=== PATIENT | male | born 1990 | race Caucasian/White ===

== ENCOUNTER 2023-09-12 15:39 | Outpatient (REF) | payer MEDICAID, SELFPAY | END 2023-09-12 15:40 | disposition home or self-care (01) | LOC: LBN 15:39 | PROVIDERS: Visit Provider Physician Assistant Medical | DX: L03.116 Cellulitis of left lower limb (principal) | CPT/HCPCS: 87077; 87070; 87186; 87205 ==

== ENCOUNTER 2023-10-10 18:51 | Observation (INO) | payer MEDICAID, SELFPAY ==
[2023-10-10 19:05] VITALS: BP 154/78; PULSE 102; RESP 16; TEMP 37.5; O2SAT 98
[2023-10-10 20:02] VITALS: RESP 18
--- NOTE | 2023-10-10 20:15 | DI.US_ITS ---
Exam(s) US SCROTUM EXAM: US SCROTUM CLINICAL HISTORY: testicular swelling and pain. TECHNIQUE: Scrotal ultrasound performed using grayscale, color-flow and spectral Doppler analysis. COMPARISON: No exams were available for comparison FINDINGS: Right testicle: 5.2 x 2.4 x 3.1 cm Echogenicity: Normal. Contour: Smooth. Mass: None seen. Microlithiasis: None. Hydrocele: None. Variocele: None. Hernia: No peristalsing bowel loop identified. Epididymis: Was not visualized well sonographically. Heterogeneous tissue is seen in the region of t he right epididymis. Left testicle: 4 x 2.7 x 3.9 cm Echogenicity: Normal. Contour: Smooth. Mass: None seen. Microlithiasis: None. Hydrocele: None. Variocele: None. Hernia: No peristalsing bowel loop identified. Epididymis: Normal. DOPPLER: Color: Symmetric and uniform, no hyperemia. There is subcutaneous swelling between the testicles in the scrotal soft tissues. It is slightly mor e hypoechoic than the surrounding soft tissues. There is slight increased blood flow in this region. IMPRESSION: 1. Normal appearing bilateral testicles. 2. Subcutaneous swelling in the scrotal soft tissues anterior and between the testicles. There is hy pervascularity and slight decreased echogenicity. Inflammatory/infectious process such as cellulitis or mass should be considered. 3. Heterogeneous soft tissue in the region of the right epididymis. Differential considerations incl ude right epididymitis, possible inguinal hernia. DATA REPOSITORY:
--- NOTE | 2023-10-10 20:15 | DI.CT_ITS ---
Exam(s) CT ABDOMEN PELVIS W EXAM: CT ABDOMEN PELVIS W CLINICAL HISTORY: scrotal pain swelling, concern hernia incarcer. TECHNIQUE: Imaging Protocol: Axial computed tomography images with coronal and sagittal reformatted images were created and reviewed. CONTRAST MATERIAL: Intravenous: Omnipaque 350 Contrast volume:100 mL Oral: No COMPARISON: US US SCROTUM from 10/10/2023 FINDINGS: ABDOMEN: Lung Bases: Atelectatic changes are seen in the lung bases. Liver: There is decreased attenuation of the liver. The liver is enlarged measuring 24 cm. No measu rable mass. Portal, Superior Mesenteric, and Splenic Veins: Unremarkable. Gallbladder and Biliary Tract: Status post cholecystectomy. No significant biliary ductal dilatation . Pancreas: Normal density, no abnormal calcifications or inflammatory process. Spleen: The spleen measures 14 cm long. Adrenals: No masses seen. Kidneys: Normal size, contour and axis. No radiodense stones or obstructive uropathy. Simple right re nal cyst. No follow-up is recommended. Abdominal Aorta: Abdominal portion non-dilated. IVC: There is an IVC filter in place. Bowel: No obstruction or bowel wall thickening. No evidence of appendicitis. Peritoneal Cavity: No ascites, collection or mesenteric inflammatory response. No free air. Lymph Nodes: There are enlarged right inguinal lymph nodes. The largest measures 1.4 x 3.7 cm (serie s 5, image 916). There also enlarged lymph nodes seen in the periaortic region in the willian hepatis. The largest lymph node measures 2.5 x 2 cm. (Series 5, image 274). Bones: Within normal limits for the patient's age. 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 Soft Tissues: There are enlarged vessel seen in the inguinal regions bilaterally, right greater than left. These may be varices. PELVIS: Bladder: Symmetric distention, no gross wall thickening. Reproductive Organs: Unremarkable as visualized. There is edema seen in the soft tissues of the scrot um. No focal fluid collection or gas is seen. There is a subtle area of slightly increased attenuati on anteriorly between the testicles (series 10 this may correspond to the finding seen on the ultraso und from earlier in the day. Images [id number]). Lymph Nodes: Within normal limits. Bones: Within normal limits for the patient's age. IMPRESSION: 1. Subtle area of slight increased attenuation anteriorly in the scrotum between the testicles in the subcutaneous location. A mass cannot be excluded. This does correspond to the area seen on the ultra sound from earlier in the day. 2. Enlarged lymph nodes seen in the retroperitoneum, willian hepatis and right inguinal region. Neoplas m or metastatic disease should be considered. Pet scan may be considered for further evaluation. 3. Hepatosplenomegaly and hepatic steatosis. 4. Bilateral inguinal varices, right greater than left. RADIATION DOSE DELIVERED: Total DLP DATA REPOSITORY: All CT scans at this facility are submitted to the National Radiology Data Registry (NRDR) Dose Index Registry (DIR) with the [employer] ([employer]). RADIATION OPTIMIZATION: All CT scans at this facility use at least one of these dose optimization te chniques: automated exposure control; mA and/or kV adjustment per patient size (includes targeted exa ms where dose is matched to clinical indication); or iterative reconstruction.
--- NOTE | 2023-10-10 20:19 | ED.GENADUL_ITS ---
Discharge Plan Disposition Patient Disposition: Admit to [facility] Condition: Stable Discharge Details Chief Complaint: GenMedical Clinical Impression: Scrotal infection Primary Care Provider: None,None ED Provider: Jason Lopez Home Meds and New Rx's Prescriptions: No Action pantoprazole 40 mg tablet,delayed release (DR/EC) 40 mg PO DAILY venlafaxine [Effexor XR] 150 mg capsule,extended release 24hr 150 mg PO DAILY lisinopril 10 mg tablet 10 mg PO DAILY quetiapine [Seroquel XR] 150 mg PO HS buprenorphine-naloxone [Suboxone] 8 mg sublingual BID enoxaparin [Lovenox] 150 mg/mL syringe 150 mg subcut Q12H HPI General Date/Time Provider Initiated Documentation: 10/10/23 19:10 . HPI Narrative: 32 year-old male presents to ED today by POV/ambulating with a chief complaint of testicular pain, swelling, redness with onset 2 days ago that started with a tiny lump, has grown significantly, excruciating pain. Quality described as severe pain, no radiation to dysuria, penile discharge, does endorse R inguinal tenderness as well, states relief with elevation, has a small skin lesion resemb ling a pimple on R scrotal sac, history of MRSA recently. Severity is described as 10. Palliating factors include elevation, nothing else helping. Provoking factors include nothing specific. Patient is anticoagulated on Lovenox BID, [ ]. Related Data Home Medications Medication Instructions Recorded Confirmed buprenorphine-naloxone 8 mg sublingual BID 10/10/23 10/10/23 enoxaparin 150 mg/mL subcutaneous 150 mg subcut Q12H 10/10/23 10/10/23 syringe (Lovenox) lisinopril 10 mg tablet 10 mg PO DAILY 10/10/23 10/10/23 pantoprazole 40 mg tablet,delayed 40 mg PO DAILY 10/10/23 10/10/23 release quetiapine 150 mg PO HS 10/10/23 10/10/23 venlafaxine 150 mg 150 mg PO DAILY 10/10/23 10/10/23 capsule,extended release 24 hr (Effexor XR) Allergies Allergy/AdvReac Type Severity Reaction Status Date / Time ceftriaxone Allergy Other (See Verified 10/10/23 22:14 Comment) diphenhydramine Allergy Other (See Verified 10/10/23 19:52 [From Benadryl] Comment) keflex Allergy Other (See Uncoded 10/10/23 19:53 Comment) rocephin Allergy Other (See Uncoded 10/10/23 19:52 Comment) General Stated Complaint: GenMedical MAR: 3 Review of Systems All systems reviewed & are unremarkable except as noted in HPI and below Exam Narrative Exam Narrative: GENERAL APPEARANCE: Well-nourished, non-toxic, awake and alert, atraumatic, no acute distress. SKIN: Warm, pink, dry, intact, without rashes/lesions/ulcerations. HEAD: Normocephalic, atraumatic, normal hair distribution for gender/age. EYES: Pupils PERRLA, EOMs intact without nystagmus, normal conjunctiva, no exudates on lids/lashes. ENT: Nares patent, no circumoral cyanosis, no facial swelling NECK: Supple, trachea midline, painless cervical ROM. LUNGS/CHEST: Lungs CTA bilaterally, non-labored respirations, normal A/P diameter, symmetrical expansion, no chest wall deformity HEART (CV/PV): Regular rate and rhythm without murmur, no peripheral edema, no JVD. ABDOMEN: Soft, non-distended, no guarding. : Significant scrotal swelling taking up the entire superior scrotum with a small pimple-like lesion on the right scrotal sac, there is redness and warmth, no penile discharge, no cutaneous emphysema, right inguinal tenderness without large inguinal bulge, no peritoneal signs to the rest of the abdomen MSK: Normal ROM, no swelling/deformity to bilateral UEs or LEs, moving all extremities without weakness, no cyanosis, spine midline without tenderness, normal curvature. NEURO: Mental Status AAOx4 - alert to person, place, time, events No facial droop, no forehead involvement. Motor: No focal weakness - strength 5/5 in bilateral UEs and LEs, proximal and distal, symmetric. Sensory: sensation intact to light touch globally. Gait normal: patient ambulated without ataxia into ED room. PSYCH: euthymic, cooperative, pleasant, appropriate speech Course Vital Signs Vital signs: Vital Signs Temperature 37.5 C 10/10/23 19:05 Pulse 102 H 10/10/23 19:05 Respiratory Rate 16 10/10/23 19:05 Blood Pressure 154/78 H 10/10/23 19:05 Pulse Oximetry 98 10/10/23 19:05 Temperature 37.5 C 10/10/23 19:05 Temperature Source Temporal Artery Scan 10/10/23 19:05 Pulse 102 H 10/10/23 19:05 Respiratory Rate 18 10/10/23 20:02 Respiratory Effort Normal 10/10/23 20:02 Respiratory Depth Normal 10/10/23 20:02 Respiratory Pattern Normal 10/10/23 20:02 Blood Pressure 154/78 H 10/10/23 19:05 Blood Pressure Position Sitting 10/10/23 19:05 Pulse Oximetry 98 10/10/23 19:05 Oxygen Delivery Method Room Air 10/10/23 19:05 Oxygen Flow Rate 0 10/10/23 19:05 Pain Level 9 10/10/23 19:05 Medical Decision Making This dictation utilizes [id number] dictation software and may contain unedited grammatical errors. 32 y/o M presents to ED today with a chief complaint of scrotal swelling, started 2 days ago with a small lump, has grown exponentially in size, having redness/warmth to touch, small pimple-like lesion on R scrotum, R inguinal pain. Patient denies new sexual partners, denies penile pain or discharge. Patients' medical history: suboxone use, lovenox use BID. Family and social history: IVDU history, denies recent sexual partners. Pertinent exam findings / vital signs include significant scrotal swelling with warm to touch and redness, no subcutaneous emphysema on palpation, cremaster's intact, relief with elevation, nontoxic vitals, benign cardiopulmonary status, pain on palpation at right inguinal canal. Differential / pathologies of concern include incarcerated hernia, testicular torsion, Robert's gangrene, soft tissue infection of scrotum, STI. Diagnostic studies of: -CBC, CMP, UA (clean & dirty), NG/GC, CRP/ESR, Lactate, Procalcitonin, Lipase, Blood Cx's, U/S Scrotum, CT ABD/Pelvis w Contrast. -CBC shows leukocytosis 12.3 -Lactate WNL -CRP / ESR mild elev -UA not infected -Procalcitonin neg -Lipase WNL -Blood Cx's pending -US shows no testicular torsion, questions infection -CT shows no incarcerated hernia, no gas, likely soft tissue infection Interventions of: -Given IV ceftriaxone and doxycycline, 3 mg Dilaudid, 1 g IV Tylenol, held NSAIDs as the patient is on twice daily Lovenox for unknown reason, consult with general surgery Dr. Serna. ED Course/Assessment/Plan: 32-year-old male is seen with acute scrotal swelling with pimple-like lesion on the scrotum, has severe pain with palpation, I am concerned for Robert's gangrene as well as possible testicular torsion or incarcerated hernia, labs and imaging indicate no torsion, no incarceration, likely soft tissue infection without necrotizing subcutaneous emphysema, due to the patient's severity of swelling and pain likely needs some debridement and Dr. eSrna of general surgery was consulted, admitted to be taken to the OR this evening for debridement. Findings not consistent with Robert's gangrene, testicular torsion, incarcerated hernia. Disposition of scrotal infection. Patient verbalized understanding of the plan and return to ED criteria and engaged in shared decision making. Medical Records Medical records reviewed: Yes I reviewed the patient's medical records. Imaging Data Radiologic Study: Attestation: I personally reviewed and interpreted this imaging study as follows: Imaging: Ultrasound Radiologist's impression: Exam: US Scrotum Exam date and time: 10/10/2023 8:41 PM Age: 32 years old Clinical indication: Scrotum pain TECHNIQUE: Imaging protocol: Real-time ultrasound of the scrotum and contents with color Doppler and image documentation. COMPARISON: No relevant prior studies available. FINDINGS: Right testicle: Right testis measures 5.2 x 2.4 x 3.1 cm. No parenchymal abnormality. Normal arterial and venous blood flow. Left testicle: Left testis measures 4.0 x 2.7 x 3.9 cm. No parenchymal abnormality. Normal arterial and venous blood flow. Epididymides: Normal left epididymis. Right epididymis is not well seen due to overlying soft tissue swelling. Scrotum/soft tissues: Soft tissue/skin thickening of the anterior midline upper scrotum. No fluid collection, defined mass, hyperemia, or change with Valsalva. IMPRESSION: Focal superficial extratesticular soft tissue swelling without visualization of a normal right epididymis. Consider right epididymitis, incarcerated inguinal hernia, or focal skin/subcutaneous lesion. Dictated and Authenticated by: Al Johnson MD. Ordering:DEBBIE Gomez MD Radiologic Study #2: Attestation: I personally reviewed and interpreted this imaging study as follows: Imaging: CT Scan Radiologist's impression: Exam: CT Abdomen And Pelvis With Contrast Exam date and time: 10/10/2023 8:56 PM Age: 32 years old Clinical indication: Abdominal pain and other: Scrotal pain \T\ swelling; Additional info: Scrotal pain \T\ swelling, concern hernia incarcer. TECHNIQUE: Imaging protocol: Computed tomography of the abdomen and pelvis with contrast. Contrast material: OMNI 350; Contrast volume: 100 ml; Contrast route: INTRAVENOUS (IV); COMPARISON: US SCROTUM 10/10/2023 8:41 PM FINDINGS: Pleural spaces: Pleural-parenchymal scarring in the right lung base. Liver: Normal. No mass. Gallbladder and bile ducts: Prior cholecystectomy. No biliary ductal dilatation. Pancreas: Normal. No ductal dilation. Spleen: Normal. No splenomegaly. Adrenal glands: Normal. No mass. Kidneys and ureters: Benign right renal cyst. No urolithiasis or hydroureteronephrosis. Stomach and bowel: Unremarkable. No obstruction. No mucosal thickening. Appendix: No evidence of appendicitis. Intraperitoneal space: Unremarkable. No free air. No significant fluid collection. Vasculature: IVC filter in place. Bilateral lower extremity superficial varicose veins. Large varicose vein extends into the right hemiscrotum. Lymph nodes: Several prominent retroperitoneal left para-aortic lymph nodes. Prominent willian hepatis lymph node. Several enlarged left inguinal lymph nodes. Urinary bladder: Unremarkable as visualized. Reproductive: Skin thickening and/or subcutaneous fat induration of the anterior upper scrotum. No soft tissue gas to suggest Robert's gangrene. Bones/joints: Physiologic wedging of multiple lower thoracic vertebral bodies. Benign bone island in the anterior L4 vertebral body. No acute fracture. Soft tissues: No inguinal hernia. IMPRESSION: 1. Probable skin/subcutaneous mass of the anterior upper scrotum. Enlarged right inguinal and retroperitoneal lymph nodes are concerning for metastatic disease. Consider also focal superficial scrotal infection and reactive lymphadenitis. 2. Benign right renal cyst. No further imaging required. 3. Large right hemiscrotal varicose vein. Thrombosis could result in localized pain, although there is no CT evidence of thrombosis.. Dictated and Authenticated by: Al Johnson MD. Ordering:DEBBIE Gomez MD Lab Data Lab results reviewed: Yes I reviewed the patient's lab results. Labs: 10/10/23 21:56 Blood Blood Culture - Pending 10/10/23 21:46 Blood Blood Culture - Pending Laboratory Tests Range/Units 10/10/23 10/10/23 20:00 21:20 WBC (4.4-10.8) 10^3/uL 12.83 H RBC (4.36-5.78) 10^6/uL 5.54 Hgb (13.5-17.5) g/dL 15.3 Hct (40.0-50.0) % 44.3 MCV (80-95) fL 80 MCH (27.0-33.0) pg 27.6 MCHC (32.0-36.0) % 34.5 RDW (11.8-14.1) % 13.1 Plt Count (130-400) 10^3/uL 248 MPV (8.0-11.0) fL 11.2 H Immature Gran % 0.5 Neutrophils % 66.5 Lymphocytes % 18.9 Monocytes % 10.2 Eosinophils % 3.3 Basophils % 0.6 Nucleated RBC % (0.0-0.3) % 0.0 Absolute Neutrophils (1.2-6.7) 10^3/uL 8.53 H Absolute Lymphocytes (1.2-3.4) 10^3/uL 2.42 Absolute Monocytes (0.1-0.8) 10^3/uL 1.31 H Absolute Eosinophils (0.0-0.7) 10^3/uL 0.42 Absolute Basophils (0.0-0.2) 10^3/uL 0.08 ESR (0-15) mm/hr 31 H VBG Lactate (0.6-1.4) mmol/L 1.5 H Sodium (136-145) mmol/L 136 Potassium (3.5-5.1) mmol/L 4.1 Chloride (98-107) mmol/L 99 Carbon Dioxide (21.0-32.0) mmol/L 26.1 Anion Gap (3-11) mmol/L 10.9 BUN (7-18) mg/dL 15 Creatinine (0.70-1.30) mg/dL 0.9 Est GFR (CKD-EPI 2020) (mL/min/1.73m2) 114.93 Glucose (74-106) mg/dL 147 H Calcium (8.5-10.1) mg/dL 9.2 Total Bilirubin (0.2-1.0) mg/dL 0.8 AST (15-37) U/L 31 ALT (16-63) U/L 71 H Alkaline Phosphatase (46-116) U/L 68 C-Reactive Protein (<or=0.5) mg/dL 2.33 H Total Protein (6.4-8.2) g/dL 8.9 H Albumin (3.4-5.0) g/dL 3.9 Lipase (16-77) U/L 19 Procalcitonin ng/mL 0.1 Urine Color (Yellow) Yellow Urine Clarity (Clear) Clear Urine pH (5-8) 5.5 Ur Specific Kinney (1.005-1.025) 1.025 Urine Protein (Neg-Trace) mg/dL 30 H Urine Ketones (Negative) mg/dL Trace H Urine Blood (Negative) Negative Urine Nitrite (Negative) Negative Urine Bilirubin (Negative) Small H Urine Urobilinogen (Up to 0.2) mg/dL 0.2 Ur Leukocyte Esterase (Negative) Negative Urine RBC (0-2) HPF 0-2 Urine WBC (0-5) HPF 0-2 Ur Epithelial Cells (Negative) HPF Negative Urine Crystals (Negative) HPF Negative Urine Bacteria (Negative) HPF Negative Urine Casts (Negative) LPF 0-2 Hyaline Urine Mucus (Negative) Heavy Ur Culture Indicated? No Urine Glucose (Negative) mg/dL Negative Quality:SDOH Health Related Social Needs: No Data to Display PFSH All Active Problems (Updated 10/10/23 @ 23:39 by NINFA Gutierrez) Scrotal infection (Acute) Social History Smoking risk assessment performed?: No Do you feel safe at home: Yes
[2023-10-10 20:28] LABS: Lactate 1.5 mmol/L (0.6-1.4)
[2023-10-10 20:31] LABS: Abs Immature Grans 0.06 10^3/uL (0.0-0.06); Absolute Basophil Count 0.08 10^3/uL (0.0-0.2); Absolute Eosinophil Count 0.42 10^3/uL (0.0-0.7); Absolute Monocyte Count 1.31 10^3/uL (0.1-0.8); Absolute Neutrophil Count 8.53 10^3/uL (1.2-6.7); Basophils % 0.6; Eosinophils % 3.3; HCT 44.3 % (40.0-50.0); HGB 15.3 g/dL (13.5-17.5); Immature Grans % 0.5; Lymphocytes % 18.9; MCH 27.6 pg (27.0-33.0); MCHC 34.5 % (32.0-36.0); MCV 80 fL (80-95); MPV 11.2 fL (8.0-11.0); Monocytes % 10.2; Neutrophils % 66.5; Platelet Count 248 10^3/uL (130-400); RBC 5.54 10^6/uL (4.36-5.78); RDW 13.1 % (11.8-14.1); RDW-SD 37.4 fL; WBC 12.83 10^3/uL (4.4-10.8)
[2023-10-10 20:32] LABS: Absolute Lymphocyte Count 2.42 10^3/uL (1.2-3.4)
[2023-10-10 20:33] LABS: ESR 31 mm/hr (0-15)
[2023-10-10] MEDS: Ondansetron 4 MG/2 ML VIAL IVP (20:37)
[2023-10-10] MEDS: ACETAMINOPHEN 1,000 MG/100 ML BTL 400 MG IVPB (20:37)
[2023-10-10] MEDS: HYDROmorphone 2 MG/ML SYR 1 MG IVP ×2 (20:37→21:51)
[2023-10-10 20:52] LABS: ALT 71 U/L (16-63); AST 31 U/L (15-37); Albumin 3.9 g/dL (3.4-5.0); Alkaline Phosphatase 68 U/L (46-116); Anion Gap 10.9 mmol/L (3-11); BUN 15 mg/dL (7-18); Bilirubin, Total 0.8 mg/dL (0.2-1.0); C-Reactive Protein 2.33 mg/dL (<or=0.5); CO2 26.1 mmol/L (21.0-32.0); CREATININE 0.9 mg/dL (0.70-1.30); Calcium 9.2 mg/dL (8.5-10.1); Chloride 99 mmol/L (98-107); Estimated GFR 114.93 (mL/min/1.73m2); Glucose 147 mg/dL (74-106); Lipase 19 U/L (16-77); Potassium 4.1 mmol/L (3.5-5.1); Sodium 136 mmol/L (136-145); Total Protein 8.9 g/dL (6.4-8.2)
[2023-10-10] MEDS: Omnipaque 350 MG/ML 100 ML BTL IJ (20:56)
[2023-10-10] MEDS: Normal Saline - Diluent 50 ML VIAL IJ (20:57)
[2023-10-10 21:03] LABS: Procalcitonin 0.1 ng/mL
--- NOTE | 2023-10-10 21:11 | DI.VRAD_ITS ---
PROCEDURE INFORMATION: Exam: US Scrotum Exam date and time: 10/10/2023 8:41 PM Age: 32 years old Clinical indication: Scrotum pain TECHNIQUE: Imaging protocol: Real-time ultrasound of the scrotum and contents with color Doppler and image documentation. COMPARISON: No relevant prior studies available. FINDINGS: Right testicle: Right testis measures 5.2 x 2.4 x 3.1 cm. No parenchymal abnormality. Normal arterial and venous blood flow. Left testicle: Left testis measures 4.0 x 2.7 x 3.9 cm. No parenchymal abnormality. Normal arterial and venous blood flow. Epididymides: Normal left epididymis. Right epididymis is not well seen due to overlying soft tissue swelling. Scrotum/soft tissues: Soft tissue/skin thickening of the anterior midline upper scrotum. No fluid collection, defined mass, hyperemia, or change with Valsalva. IMPRESSION: Focal superficial extratesticular soft tissue swelling without visualization of a normal right epididymis. Consider right epididymitis, incarcerated inguinal hernia, or focal skin/subcutaneous lesion. Dictated and Authenticated by: Al Johnson MD. Ordering:DEBBIE Gomez MD
[2023-10-10 21:31] LABS: Bilirubin Small (Negative); Blood Negative (Negative); Clarity Clear (Clear); Glucose Negative (Negative); Ketones Trace mg/dL (Negative); Leukocyte Esterase Negative (Negative); Nitrite Negative (Negative); Specific Gravity 1.025 (1.005-1.025); Urobilinogen 0.2 mg/dL (Up to 0.2); pH 5.5 (5-8)
--- NOTE | 2023-10-10 21:35 | DI.VRAD_ITS ---
PROCEDURE INFORMATION: Exam: CT Abdomen And Pelvis With Contrast Exam date and time: 10/10/2023 8:56 PM Age: 32 years old Clinical indication: Abdominal pain and other: Scrotal pain \T\ swelling; Additional info: Scrotal pain \T\ swelling, concern hernia incarcer. TECHNIQUE: Imaging protocol: Computed tomography of the abdomen and pelvis with contrast. Contrast material: OMNI 350; Contrast volume: 100 ml; Contrast route: INTRAVENOUS (IV); COMPARISON: US SCROTUM 10/10/2023 8:41 PM FINDINGS: Pleural spaces: Pleural-parenchymal scarring in the right lung base. Liver: Normal. No mass. Gallbladder and bile ducts: Prior cholecystectomy. No biliary ductal dilatation. Pancreas: Normal. No ductal dilation. Spleen: Normal. No splenomegaly. Adrenal glands: Normal. No mass. Kidneys and ureters: Benign right renal cyst. No urolithiasis or hydroureteronephrosis. Stomach and bowel: Unremarkable. No obstruction. No mucosal thickening. Appendix: No evidence of appendicitis. Intraperitoneal space: Unremarkable. No free air. No significant fluid collection. Vasculature: IVC filter in place. Bilateral lower extremity superficial varicose veins. Large varicose vein extends into the right hemiscrotum. Lymph nodes: Several prominent retroperitoneal left para-aortic lymph nodes. Prominent willian hepatis lymph node. Several enlarged left inguinal lymph nodes. Urinary bladder: Unremarkable as visualized. Reproductive: Skin thickening and/or subcutaneous fat induration of the anterior upper scrotum. No soft tissue gas to suggest Robert's gangrene. Bones/joints: Physiologic wedging of multiple lower thoracic vertebral bodies. Benign bone island in the anterior L4 vertebral body. No acute fracture. Soft tissues: No inguinal hernia. IMPRESSION: 1. Probable skin/subcutaneous mass of the anterior upper scrotum. Enlarged right inguinal and retroperitoneal lymph nodes are concerning for metastatic disease. Consider also focal superficial scrotal infection and reactive lymphadenitis. 2. Benign right renal cyst. No further imaging required. 3. Large right hemiscrotal varicose vein. Thrombosis could result in localized pain, although there is no CT evidence of thrombosis.. Dictated and Authenticated by: Al Johnson MD. Ordering:DEBBIE Gomez MD
[2023-10-10 21:43] LABS: Bacteria Negative HPF (Negative); C & S Indicated? No; Casts 0-2 Hyaline LPF (Negative); Crystals Negative HPF (Negative); Epithelial Cells Negative HPF (Negative); RBC 0-2 HPF (0-2); WBC 0-2 HPF (0-5)
[2023-10-10 21:44] LABS: Mucus Heavy (Negative)
[2023-10-10] MEDS: DOXYCYCLINE 100 MG in Normal Saline 100 ML IVPB (22:11)
[2023-10-10 22:21] VITALS: BP 125/84; PULSE 91; RESP 18; O2SAT 98
[2023-10-10] MEDS: fentaNYL 100 MCG/2 ML VIAL 50 MCG IVP (23:16)
--- NOTE | 2023-10-10 23:31 | W.PM.HP.N ---
Date of service: 10/10/23 Time of Service: 23:31 Assessment and Plan Assessment and plan (1) Scrotal infection: Status: Acute Assessment and plan: Based on the exam, this seems consistent with a simple scrotal abscess. However, given the patient's MRSA history, and what seems to be fairly progressive symptoms, I do have some concerns for necrotizing fasciitis or Robert's gangrene. He is already gotten a dose of clindamycin, and we will plan to move to the operating room emergently tonight for debridement. I think there is benefit to draining the left thigh abscess as well. We discussed the risks and benefits of the procedure, as well as what to expect afterwards. I think he has a good understanding of this, and possibly the need for another operation in the relatively near future if this continues to spread. History of Present Illness History of Present Illness Chief Complaint: Scrotal pain Narrative: Mike is 32 years old. He comes to the emergency department with pain in the scrotum. He thinks it started about 3 days ago when he noticed a small area that seemed consistent with a pimple. It did increase in size, with a little more discomfort yesterday. Today, however, the pain increased dramatically, and he is worried that the swelling has nearly tripled in size. He tells me that he was diagnosed with a MRSA infection in the left thigh a few weeks ago, but he is not currently taking any antibiotics. He had another skin infection in the right lower extremity, below the knee. This required multiple operative debridements. None were performed here. Other past medical history significant for antiphospholipid antibody syndrome. He is anticoagulated with enoxaparin. He took his last dose yesterday morning because he was afraid it may complicate the scrotal infection. He also has a history of drug abuse, and is currently maintained on Suboxone. He denies any significant family medical history. He denies any significant sick contacts. Review of Systems Constitutional Constitutional: Denies body ache(s), Denies chills, Denies fatigue, Denies fever(s) and Denies weakness Eyes Eyes: Reports system reviewed and no additional complaints, except as documented ENT Ears, Nose, Mouth, and Throat: Reports system reviewed and no additional complaints, except as documented Cardiovascular Cardiovascular: Denies chest pain and Denies dyspnea Respiratory Respiratory: Denies chest congestion, Denies cough and Denies dyspnea Gastrointestinal Gastrointestinal: Denies abdominal pain, Denies nausea and Denies vomiting Genitourinary Genitourinary: Reports as per HPI, Denies dysuria, Denies penile discharge and Reports testicular pain Musculoskeletal Musculoskeletal: Reports system reviewed and no additional complaints, except as documented Neurologic Neurologic: Denies weakness Psychiatric Psychiatric: Reports anxiety, Denies depression and Denies irritability Endocrine Endocrine: Denies change in body appearance and Denies fatigue Hematologic/Lymphatic Hematologic/Lymphatic: Reports system reviewed and no additional complaints, except as documented Allergic/Immunologic Allergic/Immunologic: Reports system reviewed and no additional complaints, except as documented PFSH All Active Problems (Updated 10/10/23 @ 23:39 by NINFA Gutierrez) Scrotal infection (Acute) Social History Smoking risk assessment performed?: No Do you feel safe at home: Yes Meds Allergies and Home Medications Allergies Allergy/AdvReac Type Severity Reaction Status Date / Time ceftriaxone Allergy Other (See Verified 10/10/23 22:14 Comment) diphenhydramine Allergy Other (See Verified 10/10/23 19:52 [From Ba] Comment) keflex Allergy Other (See Uncoded 10/10/23 19:53 Comment) rocephin Allergy Other (See Uncoded 10/10/23 19:52 Comment) Home Medications Medication Instructions Recorded Confirmed Type buprenorphine-naloxone 8 mg sublingual BID 10/10/23 10/10/23 History enoxaparin 150 mg/mL subcutaneous 150 mg subcut Q12H 10/10/23 10/10/23 History syringe (Lovenox) lisinopril 10 mg tablet 10 mg PO DAILY 10/10/23 10/10/23 History pantoprazole 40 mg tablet,delayed 40 mg PO DAILY 10/10/23 10/10/23 History release quetiapine 150 mg PO HS 10/10/23 10/10/23 History venlafaxine 150 mg 150 mg PO DAILY 10/10/23 10/10/23 History capsule,extended release 24 hr (Effexor XR) Exam Const General: cooperative and anxious Nutritional Appearance: obese Orientation: alert, awake and oriented x3 HENMT Head: normal to inspection Eyes General: appearance normal, both eyes and all related structures Neck Neck: normal visual inspection, full ROM and no lymphadenopathy Chest Chest: normal inspection of the chest Resp Effort & Inspection: normal respiratory effort Auscultation: clear to auscultation bilaterally Cardio Rate: regular rate Rhythm: regular rhythm Heart Sounds: S1 normal and S2 normal Other: There is a tender erythematous lesion on the anterior portion of the scrotum slightly towards the right side. It is pointed and slightly fluctuant in the center. Right testicle feels normal. Left testicle feels normal. I do not appreciate any hernias. Penis is slightly retracted Skin Other: There are 2 small abscesses on the medial portion of the left thigh. They are fluctuant and tender. There is an eschar on the right bell, with some surrounding erythema. Results Labs 10/10/23 20:00 10/10/23 20:00 Labs: Laboratory Results - last 24 hr 10/10/23 10/10/23 20:00 21:20 WBC 12.83 H RBC 5.54 Hgb 15.3 Hct 44.3 MCV 80 MCH 27.6 MCHC 34.5 RDW 13.1 Plt Count 248 MPV 11.2 H Immature Gran % 0.5 Neutrophils % 66.5 Lymphocytes % 18.9 Monocytes % 10.2 Eosinophils % 3.3 Basophils % 0.6 Nucleated RBC % 0.0 Absolute Neutrophils 8.53 H Absolute Lymphocytes 2.42 Absolute Monocytes 1.31 H Absolute Eosinophils 0.42 Absolute Basophils 0.08 ESR 31 H VBG Lactate 1.5 H Sodium 136 Potassium 4.1 Chloride 99 Carbon Dioxide 26.1 Anion Gap 10.9 BUN 15 Creatinine 0.9 Est GFR (CKD-EPI 2020) 114.93 Glucose 147 H Calcium 9.2 Total Bilirubin 0.8 AST 31 ALT 71 H Alkaline Phosphatase 68 C-Reactive Protein 2.33 H Total Protein 8.9 H Albumin 3.9 Lipase 19 Procalcitonin 0.1 Urine Color Yellow Urine Clarity Clear Urine pH 5.5 Ur Specific [place] 1.025 Urine Protein 30 H Urine Ketones Trace H Urine Blood Negative Urine Nitrite Negative Urine Bilirubin Small H Urine Urobilinogen 0.2 Ur Leukocyte Esterase Negative Urine RBC 0-2 Urine WBC 0-2 Ur Epithelial Cells Negative Urine Crystals Negative Urine Bacteria Negative Urine Casts 0-2 Hyaline Urine Mucus Heavy Ur Culture Indicated? No Urine Glucose Negative Last Vital Signs Temp 99.5 F 10/10/23 19:05 Pulse 91 H 10/10/23 22:21 Resp 18 10/10/23 22:21 BP 125/84 10/10/23 22:21 Pulse Ox 98 10/10/23 22:21 Time Spent Time spent with Patient: <40 minutes Time was spent: preparing to see the patient(eg.review tests), obtaining and/or reviewing separately otained hiistory, ordering medications,tests, procedures, indepentently interpreting results and counseling the patient
--- NOTE | 2023-10-10 23:37 | ANES.PREOP_ITS ---
General Info Date of Service Date Performed: 10/10/23 Height: 6 ft 1 in Weight: 157.397 kg Body Mass Index (BMI): 45.8 Meds Allergies and Home Medications Allergies Allergy/AdvReac Type Severity Reaction Status Date / Time ceftriaxone Allergy Other (See Verified 10/10/23 22:14 Comment) diphenhydramine Allergy Other (See Verified 10/10/23 19:52 [From Benadryl] Comment) keflex Allergy Other (See Uncoded 10/10/23 19:53 Comment) rocephin Allergy Other (See Uncoded 10/10/23 19:52 Comment) Home Medication Medication Instructions Recorded buprenorphine-naloxone 8 mg sublingual BID 10/10/23 enoxaparin 150 mg/mL subcutaneous 150 mg subcut Q12H 10/10/23 syringe (Lovenox) lisinopril 10 mg tablet 10 mg PO DAILY 10/10/23 pantoprazole 40 mg tablet,delayed 40 mg PO DAILY 10/10/23 release quetiapine 150 mg PO HS 10/10/23 venlafaxine 150 mg 150 mg PO DAILY 10/10/23 capsule,extended release 24 hr (Effexor XR) Current Visit Medications: Current Medications Generic Name Dose Route Start Last Admin Trade Name Freq PRN Reason Stop Dose Admin Iohexol 100 ml 10/10/23 21:00 10/10/23 20:56 Omnipaque 350 Mg/Ml 100 Ml Btl IJ 11/09/23 23:59 100 ml DIRECTED VERONICA Administration Sodium Chloride 50 ml 10/10/23 21:00 10/10/23 20:57 Normal Saline - Diluent 50 Ml Vial IJ 50 ml .FOR DI USE VERONICA Administration Vital Signs and Lab Results Vital Signs Most Recent Vital Signs in EMR: Most Recent Vital Signs Temp Pulse Resp BP Pulse Ox 37.5 C 91 H 18 125/84 98 10/10/23 19:05 10/10/23 22:21 10/10/23 22:21 10/10/23 22:21 10/10/23 22:21 Lab Results 10/10/23 20:00 10/10/23 20:00 Blood Type / Crossmatch: 2 No Data to Display Complete Blood Count: 2 White Blood Count 12.83 10^3/uL (4.4-10.8) H 10/10/23 20:00 Red Blood Count 5.54 10^6/uL (4.36-5.78) 10/10/23 20:00 Hemoglobin 15.3 g/dL (13.5-17.5) 10/10/23 20:00 Hematocrit 44.3 % (40.0-50.0) 10/10/23 20:00 Platelet Count 248 10^3/uL (130-400) 10/10/23 20:00 Venous Blood Lactate 1.5 mmol/L (0.6-1.4) H 10/10/23 20:00 Complete Metabolic Panel: 2 Sodium 136 mmol/L (136-145) 10/10/23 20:00 Potassium 4.1 mmol/L (3.5-5.1) 10/10/23 20:00 Chloride 99 mmol/L (98-107) 10/10/23 20:00 Carbon Dioxide 26.1 mmol/L (21.0-32.0) 10/10/23 20:00 BUN 15 mg/dL (7-18) 10/10/23 20:00 Creatinine 0.9 mg/dL (0.70-1.30) 10/10/23 20:00 Est GFR (CKD-EPI 2020) 114.93 (mL/min/1.73m2) 10/10/23 20:00 Calcium 9.2 mg/dL (8.5-10.1) 10/10/23 20:00 Albumin 3.9 g/dL (3.4-5.0) 10/10/23 20:00 Glucose 147 mg/dL (74-106) H 10/10/23 20:00 C-Reactive Protein 2.33 mg/dL (<or=0.5) H 10/10/23 20:00 Liver Function Panel: 2 Alanine Aminotransferase (ALT/SGPT) 71 U/L (16-63) H 10/10/23 2 0:00 Aspartate Amino Transf (AST/SGOT) 31 U/L (15-37) 10/10/23 20:00 Coagulation Panel: 2 No Data to Display Cardiac Panel: 2 No Data to Display Arterial Blood Gas: 2 No Data to Display Venous Blood Gas: 2 No Data to Display Pancreas Panel: 2 Lipase 19 U/L (16-77) 10/10/23 20:00 Thyroid Panel: 2 No Data to Display Infectious Disease: 2 Neisseria gonorrhoeae DNA Probe Pending 10/10/23 21:20 Blood Cultures: 2 No Data to Display Toxicology Panel: 2 No Data to Display Anesthesia Assessment and Plan Anesthesia History Personal History: No History of Anesthesia Complications Family History: No Family History of Anesthesia Complications Exercise Tolerance Exercise Tolerance: Metabolic Equivalents>4 Cardiac & Pulmonary Exam Cardiac Exam: Normal S1/S2 Heart Sounds Pulmonary Exam: Clear Bilateral Breath Sounds Implantable Cardiac Device Does patient have a Pacemaker or an ICD?: No Airway Exam Known Difficult Airway: No Mallampati Class: 3 Mouth Opening: Normal (> 3cm) Thyromental Distance: Greater than 3 cm Neck Range of Motion: Full ROM Neck Circumference: Normal Teeth Condition: Normal Dentition ASA Classification ASA Score: ASA 3 Emergency Case?: Yes NPO Status NPO Status: NPO Clears >2 hours, Solids >8 hours Anesthesia Plan Resuscitation Status: Full Code Anesthesia Technique: General Anesthesia Airway Planned: Endotracheal Tube Monitors Used: Standard Monitors Preoperative Comments:: 32 yo male for scrotal I/D. Sig PMHx: HTN (lisinopril), GERD (pantop, not well controlled), antiphospholipid antibody syndrome (lovenox, mulitple DVTs in past, IVC filter), former drug user (suboxone), s/p thoracotomy ? lobectomy/wedge resection (he is unclear, was many years ago).
[2023-10-10 23:42] VITALS: BMI 45.8
[2023-10-10 23:50] VITALS: BP 124/65; PULSE 86; TEMP 36.6
[2023-10-11] VITALS (13 sets, daily range): BP systolic 99–148; BP diastolic 58–89; PULSE 77–97; RESP 10–21; TEMP 35.6–37; O2SAT 92–100
[2023-10-11] MEDS: Lactated Ringers 1,000 ML 30 ML IV (00:37)
[2023-10-11] MEDS: Bupivacaine LIPOSOME/PF 133 MG/10 ML VIAL IJ (01:15)
[2023-10-11] MEDS: Bupivacaine 0.5% Pres-Free 30 ML VIAL (01:15)
--- NOTE | 2023-10-11 01:20 | ROE_ITS ---
Date of service: 10/11/23 Time of Service: 01:20 Operative Note Operative Note DATE OF PROCEDURE: 10/11/23 PRE-OP DIAGNOSIS: Scrotal abscess, left thigh abscess POST-OP DIAGNOSIS: same PROCEDURE: Incision and drainage of scrotal abscess and incision and drainage of left thigh abscess SURGEON: Antonio Serna ANESTHESIA TYPE: Local By Surgeon and General LMA/ETT Refer to Anesthesia Record ESTIMATED BLOOD LOSS: 10 PATHOLOGY: other (Gram stain and culture from scrotal abscess Gram stain and culture from left thigh abscess) COMPLICATIONS: None Patient was transported to: PACU Patient's condition: stable Indications: Mike is a 32-year-old male with a painful enlarging scrotal abscess. During physical exam, it became evident the left thigh abscess as well. Given the rapid progression of the scrotal abscess, is brought to the operating room emergently to rule out Robert's gangrene Findings: Simple 2.5 cm scrotal abscess, approximately 4 cm x 3 cm left thigh abscess Procedure Description: After the induction of general tracheal anesthesia, the pubis, penis, scrotum, perineum, and left thigh were all prepped and draped. Next, I carefully examined the scrotal tissue. With some gentle pressure, I was able to express some purulent fluid from a pinpoint opening. This was cannulated with the fine tip 7 Adson forcep. The overlying skin was gently incised with a scalpel in order to open the trajectory towards the abscess cavity. Next, a generous field block was established using Exparel and local anesthetic. I then cannulated the abscess cavity with a hemostat and gently disrupted the tissue. There was purulent fluid here, specimen was obtained for Gram stain and cultures. Hemostat was then used to elevate the overlying skin, and this was further incised down to the base of the abscess cavity. The cavity itself was approxi mately 2 and half centimeters deep. It extended slightly cephalad towards the base of the penis. It appeared superficial to the deep scrotal fascia. Using a finger, I gently broke up a few loculations towards the base, but it did not extend any further. It did not track up into the groins or involve any of the surrounding scrotal tissue. The wound was then irrigated, and packed with half-inch iodoform packing. Next, I turned my attention to the left thigh abscess. Similar to the scrotal abscess, the skin opening was identified, and then cannulated with the tips of a hemostat. This was gently dilated. Again, purulent fluid was expressed, and specimens were obtained for Gram stain and cultures. I then anesthetized the skin here similar to the scrotum. Next, I made it cruciate incision in the skin opening to better examine the underlying cavity. This was approximately 4 cm deep by approximately 3 cm wide. There was some coagulated old blood and fibrinous tissue here. Again, with my finger I was able to break up some simple loculations. In order to ensure adequate drainage, I then excised the tips of the cruciate skin flaps, creating a more circular defect. This allowed for more adequate drainage. The wound was irrigated, and also gently packed with half-inch iodoform packing. Dressings were then applied, the patient was allowed awaken from anesthesia and transfer red to the recovery unit.
--- NOTE | 2023-10-11 02:11 | W.ANESPOSTOP ---
Postoperative Evaluation Date, Time and Location Date Performed: 10/11/23 Time Performed: 02:11 Patient Location: PACU Vital Signs Most Recent Imported Vital Signs: Most Recent Vital Signs Temp Pulse Resp BP Pulse Ox 36.7 C 82 10 L 126/61 97 10/11/23 01:50 10/11/23 01:50 10/11/23 01:50 10/11/23 01:50 10/11/23 01:50 Pain Score Most Recent Pain Score: Most Recent Pain Score Pain Level 8 10/10/23 23:50 Assessment Mental Status: Awake (Alert & Oriented to Patient Baseline) Airway and Respiratory Function: Patent airway with normal (patient baseline) respiratory exam Cardiovascular Function: Hemodynamically Stable Hydration Status: Adequately Hydrated Nausea & Vomiting: No Nausea or Vomiting Pain: Pain is tolerable per patient Peripheral Nerve Block: Patient did not receive a nerve block
[2023-10-11] MEDS: HYDROmorphone 2 MG/ML SYR IVP ×7 (03:05→21:36)
[2023-10-11] MEDS: QUEtiapine 50 MG TAB 150 MG PO ×2 (03:10→21:27)
--- NOTE | 2023-10-11 03:17 | NUR.NOTE ---
Nursing Note: Discussed with pharmacy to verify dosing of 3000mg of vancomycin. Pharmacy changed volume of NS to dilute vancomycin in to 500ml and confirmed dose of 3000mg vancomycin.
[2023-10-11] MEDS: Normal Saline Flush 10 ML SYR IVP ×4 (04:00→21:06)
[2023-10-11] MEDS: Acetaminophen 500 MG TAB 1000 MG PO ×2 (05:48→12:19)
[2023-10-11] MEDS: oxyCODONE 5 MG TAB PO (07:48)
[2023-10-11] MEDS: Pantoprazole 40 MG TABCR PO (07:49)
[2023-10-11] MEDS: Venlafaxine 150 MG CAPCR PO (07:49)
[2023-10-11] MEDS: Lisinopril 10 MG TAB PO (07:49)
[2023-10-11] MEDS: Psyllium PKT 1 EACH PO (07:50)
[2023-10-11 08:55] LABS: HCT 42.9 % (40.0-50.0); HGB 14.6 g/dL (13.5-17.5); MCH 27.5 pg (27.0-33.0); MCV 81 fL (80-95); MPV 11.1 fL (8.0-11.0); Platelet Count 224 10^3/uL (130-400); RBC 5.31 10^6/uL (4.36-5.78); RDW 13.1 % (11.8-14.1); RDW-SD 38.5 fL; WBC 9.38 10^3/uL (4.4-10.8)
[2023-10-11 09:11] LABS: Hemoglobin A1C 6.4 % (<5.7)
--- NOTE | 2023-10-11 10:06 | PDOC.CMIN ---
Date of service: 10/11/23 Time of Service: 10:06 Care Management Initial Assmt Initial Assessment REASON FOR HOSPITALIZATION:: scrotal abscess PREVIOUS FUNCTIONAL STATUS/SOCIAL/FAMILY SUPPORTS:: Mike lives in [place], [place] in a sober house on [address]. He has been there for about 4 months, however he has been sober for about a year and a half. Mike has 3 daughters who live in [place] with their mother but he does not currently have contact with them. 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 He is independent at baseline and receives suboxone for JAYLEN through [facility]. . CURRENT FUNCTIONAL STATUS:: Mike was lying in bed when CM met with him. He was polite but seemed a little reluctant to answer questions, asking if CM asked the same questions of everyone. CM assured him that it was the standard practice and the purpose is to help identify both sources of support as well as potential care needs. Mike went to the OR this morning and underwent incision and drainage of both a scrotal abscess and an abscess on his left thigh. He was complaining of pain at an 8 or 9/10 and was being medicated with 2 mg of IV Dilaudid at the time of CM's visit. He stated the pain meds do help but do not take the pain away completely. Mike informed CM that he would like to get back to work as soon as possible as he needs the money to pay his rent. He reported that he feels he can do his own dressing changes and wound care which will involve packing. He previously had a similar wound on his lower leg which he cared for himself. ADVANCE DIRECTIVES:: none Has patient been provided with info about the portal/API?: Yes Did the patient sign up for the portal?: No CODE STATUS:: Full Code INSURANCE COVERAGE / FINANCIAL ISSUES:: Medicaid CURRENT HOME/COMMUNITY SERVICES/EQUIPMENT:: suboxone maintenance PRIMARY CARE PHYSICIAN:: none POTENTIAL DISCHARGE NEEDS:: establish with PCP PATIENT/FAMILY EDUCATION NEEDS:: Review of discharge instructions, activity, limitations, follow up plan, discuss Ask Me Three TRANSPORTATION:: via private vehicle with friend vs RCT PLAN:: Anticipate Mike will be discharged home with no new services, when medically stable. He will follow up with his PCP and plan of care and transport with family. CM will follow and continue to support discharge planning needs. PFSH All Active Problems (Updated 10/10/23 @ 23:39 by NINFA Gutierrez) Scrotal infection (Acute) Social History Smoking risk assessment performed?: No Housing: apartment Do you feel safe at home: Yes SDOH(Care Management) Screening Will the Patient Participate in the Screening?: Yes Do you worry about having a steady place to live?: choose not to answer Problems where you live: no known problems In the past 12 months, have you had to go without electric, gas, oil or water in your home?: no Have you or anyone in your house had to go without enough food to eat?: no Has lack of transportation kept you from medical appointments or from doing things needed for daily living?: no Has anyone in your support network made you feel unsafe for any reason?: no Health Related Social Needs Health related social needs details: pt lives in [facility]
[2023-10-11] MEDS: oxyCODONE 10 MG TAB PO ×2 (12:19→17:33)
[2023-10-11] MEDS: VANCOMYCIN/WATER (PEG) 1.5 GM/300 ML BAG IVPB ×2 (14:13→21:06)
[2023-10-12] MEDS: oxyCODONE 10 MG TAB PO ×4 (00:02→19:05)
[2023-10-12] MEDS: HYDROmorphone 2 MG/ML SYR IVP ×7 (01:32→22:45)
[2023-10-12] MEDS: VANCOMYCIN/WATER (PEG) 1.5 GM/300 ML BAG IVPB ×4 (02:59→22:44)
[2023-10-12 03:09] VITALS: BP 123/64; PULSE 72; RESP 20; TEMP 36.7; O2SAT 96
[2023-10-12 07:36] VITALS: BP 119/64; PULSE 65; RESP 16; TEMP 35.1; O2SAT 95
[2023-10-12] MEDS: Venlafaxine 150 MG CAPCR PO (08:15)
[2023-10-12] MEDS: Pantoprazole 40 MG TABCR PO (08:15)
[2023-10-12] MEDS: Lisinopril 10 MG TAB PO (08:15)
[2023-10-12] MEDS: Normal Saline Flush 10 ML SYR IVP ×3 (08:16→21:07)
--- NOTE | 2023-10-12 10:04 | CMPROGNOTE_ITS ---
Date of service: 10/12/23 Time of Service: 10:04 Care Management Progress Note Progress Note Text Progress Note Text: S/O:Mike was sitting up in bed when CM met with him. He stated that he is feeling a little bit better today. He also stated that he was hungry and requested CM get him some pudding which CM did. Mike is likely going to be discharged home tomorrow. He will have new [facility] orders for nursing to do daily dressing changes. Mike informed CM that he has done his own complicated dressing changes before and feels he will be able to do them himself once he is taught. [facility] was notified of the anticipated admission to their service by CM. A: Mike is a 32 year old male admitted on 10/11/23 with a scrotal abscess P:Anticipate Mike will be discharged home with new home health nursing services, when medically stable. He will follow up with his PCP and plan of care and transport with family. CM will follow and continue to support discharge planning needs. SDOH(Care Management) Screening Will the Patient Participate in the Screening?: Yes Do you worry about having a steady place to live?: choose not to answer Problems where you live: no known problems In the past 12 months, have you had to go without electric, gas, oil or water in your home?: no Have you or anyone in your house had to go without enough food to eat?: no Has lack of transportation kept you from medical appointments or from doing things needed for daily living?: no Has anyone in your support network made you feel unsafe for any reason?: no Health Related Social Needs Health related social needs details: pt lives in [facility]
[2023-10-12 13:52] LABS: Chlamydia Result Negative (Negative); GC Result Negative (Negative)
[2023-10-12 15:13] VITALS: BP 125/60; PULSE 65; RESP 17; TEMP 35.9; O2SAT 99
--- NOTE | 2023-10-12 15:20 | PGE_ITS ---
Date of Service Date of service: 10/12/23 Time of Service: 15:33 Assessment and Plan Assessment and plan (1) Scrotal infection: Status: Acute (2) Scrotal abscess: Status: Acute Assessment and plan: -MRSA abscess. -daily packing. Will need home health. (3) Abscess of left thigh: Status: Acute (4) MRSA cellulitis: Status: Acute (5) HTN (hypertension): Status: Chronic (6) Narcotic abuse in remission: Status: Acute (7) Pre-diabetes: Status: Acute (8) GERD (gastroesophageal reflux disease): Status: Chronic (9) Depression with anxiety: Status: Acute (10) Obesity, Class III, BMI 40-49.9 (morbid obesity): Status: Acute Subjective Subjective Interval history since last seen: Pt is doing well. no headaches. No CP or SOB. no productive cough. no dysuria. no leg pain or swelling. pt c/o severe pain. He has not been getting up adn walking. Dressing changed by RN. Exam Narrative Exam Narrative: decreased redness and swelling in wound .no calf pain L: CTA b/l Objective Last Vital Signs Temp 35.9 C L 10/12/23 15:13 Pulse 65 10/12/23 15:13 Resp 17 10/12/23 15:13 BP 125/60 10/12/23 15:13 Pulse Ox 99 10/12/23 15:13 Laboratory Results - last 24 hr 10/10/23 21:20 Chlamydia DNA Probe Negative Chlamydia/GC DNA Source Not Applicable N.gonorrhoeae DNA Probe Negative Time Spent with Patient Time Spent with Patient: 25-34 minutes Time was spent: preparing to see the patient(eg.review tests), obtaining and/or reviewing separately otained hiistory, ordering medications,tests, procedures, referring, communicating with other health multi care technician, indepentently interpreting results, counseling the patient and care coordination
--- NOTE | 2023-10-12 15:37 | PDOC.HHF2F ---
Home Health Referral Home Health Orders Clinical synopsis of why skilled professionals are needed: daily packing changes Medical diagnosis necessitation home health referral: left thigh/scrotal abscess . MRSA+ newly diagnosed DM Registered Nurse: Check all that apply Assess for exacerbation of medical condition, instruct patient/caregivers on signs and symptoms to report for early detection: Ordered Assess wound for signs and symptoms of infection, instruct on wound care and/or provide skilled wound care consisting of: daily packing of scrotum/thigh Precautions List Precautions: MRSA Home Bound Status Patient has a condition such that leaving home is medically contraindicated (Describe): infection/open wound/MRSA Describe why leaving home would require a considerable and taxing effort: Side effects from pain medication (sedation/drowsiness), Requires frequent rest periods, Safety Concerns: describe and Requires alternative accommodations: Encounter Date and Reason: I certify that a FTF encounter for this patient was performed on October 12, 2023 and that such encounter was related to the primary reason the patient requires home health services. The encounter was conducted in the following manner: By me as the certifying physician, OUTPATIENT CODING SPECIALIST, PA or By an inpatient physician, OUTPATIENT CODING SPECIALIST or PA during an inpatient stay who communicated findings to me, Certification And Authentication I certify that I composed the above information based on my clinical judgment relating to this patient's medical condition and, if applicable, clinical findings communicated to me by the NPP or inpatient physician who performed the FTF encounter. Name of Provider that will be monitoring home health services: Glenys Quijano
[2023-10-12 20:05] VITALS: BP 122/65; PULSE 67; RESP 24; TEMP 36.3; O2SAT 98
[2023-10-12] MEDS: QUEtiapine 50 MG TAB 150 MG PO (21:06)
[2023-10-12 22:35] LABS: MRSA PCR Positive (Negative)
[2023-10-13] MEDS: oxyCODONE 10 MG TAB PO ×3 (01:29→16:07)
[2023-10-13] MEDS: HYDROmorphone 2 MG/ML SYR IVP ×3 (03:28→13:28)
[2023-10-13] MEDS: VANCOMYCIN/WATER (PEG) 1.5 GM/300 ML BAG IVPB (03:29)
[2023-10-13 07:37] VITALS: BP 113/57; PULSE 67; RESP 20; TEMP 36.1; O2SAT 97
[2023-10-13 07:51] LABS: CREATININE 0.8 mg/dL (0.70-1.30); Vancomycin, Random 27.8 ug/mL
[2023-10-13] MEDS: Pantoprazole 40 MG TABCR PO (08:38)
[2023-10-13] MEDS: Venlafaxine 150 MG CAPCR PO (08:39)
[2023-10-13] MEDS: Lisinopril 10 MG TAB PO (08:39)
[2023-10-13] MEDS: Normal Saline Flush 10 ML SYR IVP ×3 (08:41→13:46)
[2023-10-13] MEDS: VANCOMYCIN/WATER (PEG) 1.25 GM/250 ML BAG IVPB (10:26)
--- NOTE | 2023-10-13 10:59 | NUR.NOTE ---
Nursing Note:1015: Pt c/o 12/09 stabbing chest pain, non radiating, BP 124/79, OH 70, SATs 97% on RA, notified, no new orders obtained. 1045: upon reassment pt denies chest pain , updated, no new orders obtained at this time
--- NOTE | 2023-10-13 13:35 | PHA.REVIEW2 ---
Pharmacy Admission Review Admission Clinical Review Admission Pharmacy Review: Obesity, Class III, BMI 40-49.9 (morbid obesity) (Acute) Depression with anxiety (Acute) Pre-diabetes (Acute) Narcotic abuse in remission (Acute) MRSA cellulitis (Acute) Abscess of left thigh (Acute) Scrotal abscess (Acute) Scrotal infection (Acute) ceftriaxone Allergy (Verified 10/10/23 22:14) Other (See Comment) diphenhydramine [From Benadryl] Allergy (Verified 10/10/23 19:52) Other (See Comment) keflex Allergy (Uncoded 10/10/23 19:53) Other (See Comment) rocephin Allergy (Uncoded 10/10/23 19:52) Other (See Comment) Resuscitation Status Full Code Height 6 ft 1 in Weight 168.2 kg Pharmacy Admission Review Renal Dosing Renal Dosing: BUN 15 mg/dL (7-18) 10/10/23 20:00 Creatinine 0.8 mg/dL (0.70-1.30) 10/13/23 07:15 Medications needing adjustments: Reviewed (CrCl 212 mL/min) Anticoagulation Anticoagulation: Hgb 14.6 g/dL (13.5-17.5) 10/11/23 08:25 Hct 42.9 % (40.0-50.0) 10/11/23 08:25 Plt Count 224 10^3/uL (130-400) 10/11/23 08:25 Creatinine 0.8 mg/dL (0.70-1.30) 10/13/23 07:15 Therapeutic Anticoagulation: Reviewed Medications: Enoxaparin (150mg q12h) Opiate Usage Evaluate Pain Scale/Pains Meds: Reviewed (Hydromorphone BID and PRN, oxycodone PRN, and Suboxone BID) Scheduled Bowel Reg ordered if on Opiates?: Yes (Miralax) Relevant Labs Relevant Labs: ESR 31 mm/hr (0-15) H 10/10/23 20:00 Sodium 136 mmol/L (136-145) 10/10/23 20:00 Potassium 4.1 mmol/L (3.5-5.1) 10/10/23 20:00 Chloride 99 mmol/L (98-107) 10/10/23 20:00 C-Reactive Protein 2.33 mg/dL (<or=0.5) H 10/10/23 20:00 Electrolytes, C-Reactive P, ESR: Reviewed (No new labs for today) Cardiac Review BP, HR, EF%: Reviewed (BP 113/57 and HR WNL) QTc Review QTc: Reviewed (No EKG in patients file) IV to PO Switch IV Medications: Reviewed (Ondansetron, vancomycin and hydromorphone) Home Meds Home Med List reviewed: Intervened Relevent Home Meds Not ordered & why?: Verified Suboxone with VPMS Current Meds Current Medication Order Review: Reviewed Pharmacy Antibiotic Review Pharmacy Antibiotic Activity: C/S review and Reviewed, no change Comments: Patient is on vancomycin day 3 for scrotal abscess. Vancomycin level was 27.8 at 0715 today and SCr decreased from 0.9 to 0.8. Dose was changed to 1250mg q8h with predicted AUC of 482 and trough of 16.6. New level ordered for 1700 (before next dose). Thigh and scrotum cultures positive for MRSA.
--- NOTE | 2023-10-13 14:03 | DSE_ITS ---
Date of service: 10/13/23 Time of Service: 14:06 DS: Diagnosis Discharge Diagnosis (1) Scrotal infection: Status: Acute (2) Scrotal abscess: Status: Acute (3) Abscess of left thigh: Status: Acute (4) MRSA cellulitis: Status: Acute (5) HTN (hypertension): Status: Chronic (6) Narcotic abuse in remission: Status: Acute (7) Pre-diabetes: Status: Acute (8) GERD (gastroesophageal reflux disease): Status: Chronic (9) Depression with anxiety: Status: Acute (10) Obesity, Class III, BMI 40-49.9 (morbid obesity): Status: Acute Discharge Plan Disposition Patient Disposition: Home Condition: Improving Discharge Details Reason For Visit: Scrotal abscess Admit Date/Time: 10/11/23 01:35 Admit Provider: Antonio Serna Attending Provider: Antonio Serna Primary Care Provider: None,None Hospital Course Hospital Course: Patient is a 32-year-old male with a history of MRSA/obesity/narcotic abuse/hypertension. He presented to the ED on 10/10/2023 with a abscess and cellulitis on the scrotum and left inner thigh. He went to the OR for incision and drainage. Please see the operative report for details of this procedure. Cultures were taken. Cultures did show MRSA. He was started on vancomycin. He has done very well. The incisions are clean dry and intact with no drainage and good granulation tissue. His A1c is 6.4. He needs to follow-up with his PCP for treatment diabetes. He will be discharged to home today on 5 days of Bactrim and follow-up in surgery clinic next week. He will need to call make an appointment as this is Sunday. [facility] has been set up to do packing/ dressing changes daily. The scrotal wound has already healed up and does not require further packing. The wound on the thigh will need to be packed for a few days/until it is less than a centimeter deep. Patient can return to work. Home Meds and New Rx's Prescriptions: New oxycodone 10 mg Tablet 10 mg PO DIRECTED PRNQty: 7 0RF Rx Instructions: take medication 1 hour prior to dressing changes Metamucil Sugar-Free (aspart) 3.4 gram/5.8 gram Powder 3.4 pwd PO DAILY Qty: 500 0RF sulfamethoxazole-trimethoprim [Bactrim DS] 800-160 mg tablet 1 tab PO BID 5 Days Qty: 10 0RF Continued pantoprazole 40 mg tablet,delayed release (DR/EC) 40 mg PO DAILY venlafaxine [Effexor XR] 150 mg capsule,extended release 24hr 150 mg PO DAILY lisinopril 10 mg tablet 10 mg PO DAILY quetiapine [Seroquel XR] 150 mg PO HS buprenorphine-naloxone [Suboxone] 8 mg sublingual BID enoxaparin [Lovenox] 150 mg/mL syringe 150 mg subcut Q12H Discharge Instructions Additional Instructions: -Bactrim (antibiotic) twice a day for 5 days. -Tylenol 1000mg every 6 hours.? Tylenol is an anti-inflammatory. -Ibuprofen 600mg every 6hrs prn pain.? Do not take aspirin while taking this medication.? Take this medication w/ food. Do not take on an empty stomach. -Use ice.? This also helps to keep swelling down -Metamucil daily for bowels/constipation.? Do NOT strain to move your bowels!? This is like lifting 50#'s.? ?OR- Mirlax daily to prevent constipation. -No driving for 24 hrs or if you are taking narcotic pain medications. -Follow-up with Dr. Serna in 1 week. You will need to call on Sunday for an appointment. -Controlled carb diet. You are pre-diabetic. Be sure to follow up w/ your PCP regarding medication and lifestyle changes -pain meds are very constipating: if you do not move your bowels daily take a dose of OTC Miralax -It is ok to shower. No bathe, soaking, swimming or hot tubs -Keep wound clean and dry. Wash incision with soap and water daily. -Remove old packing. Shower as you normally wood. Than home health will come and re-pack your wound. -You may find that your appetite is smaller. Eat 3-6 small meals throughout the day. It is important to drink lots of water after surgery, 6-10 glasses a day. -If you were given an incentive spirometry (breathing manager solution?), continue to do this 10x/hour while awake. -We do want you up walking, at least 5-6 times per day. This is very important to prevent pneumonia and blood clots. You can climb stairs, take them slowly. -You may find that you are very tired after surgery- this is normal. -please do not smoke for a minimum of 72 hours after surgery. Activity:: Activity as Tolerated Equipment/Supplies:: Blood Glucose Monitor Diet:: Carb Counting Discharge Orders Discharge Orders: Discharge Order (Routine); Ordered 10/13/23 Ordered By: Glenys Quijano DS: Summary Time Spent with Patient providing and/or coordinating discharge services: Greater than 30 minutes Status at Discharge Functional status at discharge: independent ambulation Overall status at discharge: patient is progressing back to baseline Mental Status: mental status grossly normal Speech and Movement: speech and movement normal Mood: congruent mood Affect: normal affect Quality:SDOH Health Related Social Needs: Health related social needs details pt lives in [facility], Health related social needs details: pt lives in [facility] Exam Psych Mental Status: mental status grossly normal Speech and Movement: speech and movement normal Mood: congruent mood Affect: normal affect DS: Data Vitals/I&O Vitals and I&O: Vital Signs Temperature 36.1 C L 10/13/23 07:37 Temperature Source Tympanic 10/13/23 07:37 Pulse 67 10/13/23 07:37 Pulse Rhythm Regular 10/13/23 12:00 Respiratory Rate 20 10/13/23 07:37 Respiratory Effort Normal, Non-Labored 10/13/23 12:00 Respiratory Depth Shallow 10/13/23 12:00 Respiratory Pattern Normal 10/13/23 12:00 Blood Pressure 113/57 L 10/13/23 07:37 Blood Pressure Position Sitting 10/10/23 19:05 Pulse Oximetry 97 10/13/23 07:37 Respiratory End-tidal CO2 39 10/11/23 01:50 Oxygen Delivery Method Room Air 10/13/23 11:52 Oxygen Flow Rate 0 10/13/23 11:52 Pain Level 9 10/13/23 13:28 Comment pt reports getting vancomycin in the past. he is very diaphoretic. reports he has some itching. his vital signs are stable. no signs of a vancomycin rash. mouth clear of any signs of redness. 10/11/23 04:26 Intake & Output 10/12/23 10/13/23 10/13/23 23:59 11:59 23:59 Intake Total 300 / 1241 860 / 860 Output Total 1000 / 1800 900 / 1400 500 / 1400 Balance -700 / -559 -40 / -540 -500 / -540 Intake: IV 300 / 900 620 / 620 Oral 240 / 240 Output: Urine 1000 / 1800 900 / 1400 500 / 1400 Other: Urine Color Light Ariadna Yellow Yellow Urine Appearance Clear Clear Clear Urine Odor Sweet None None Voiding Methods Urinal Urinal Urinal Data Completed and Pending Labs on day of discharge: Labs from last 24 hours 10/13/23 10/13/23 10/12/23 17:00 07:15 19:30 Creatinine 0.8 Est GFR (CKD-EPI 2020) 119.10 Vancomycin Trough Pending Random Vancomycin 27.8 Chlamydia DNA Probe Chlamydia/GC DNA Source N.gonorrhoeae DNA Probe MRSA (TEM-PCR) Positive A 10/10/23 21:20 Creatinine Est GFR (CKD-EPI 2020) Vancomycin Trough Random Vancomycin Chlamydia DNA Probe Negative Chlamydia/GC DNA Source Not Applicable N.gonorrhoeae DNA Probe Negative MRSA (TEM-PCR) Preliminary micro results at discharge 10/11/23 01:00 Anaerobic Culture - Preliminary Thigh - Left 10/11/23 01:00 Anaerobic Culture - Preliminary Scrotum 10/11/23 01:00 Surgical Culture - Preliminary Thigh - Left Staph aureus, MRSA 10/11/23 01:00 Surgical Culture - Preliminary Scrotum Staph aureus, MRSA 10/10/23 21:46 Blood Culture - Preliminary Blood NO GROWTH 48 HOURS 10/10/23 21:56 Blood Culture - Preliminary Blood NO GROWTH 48 HOURS PFSH All Active Problems (Updated 10/12/23 @ 15:29 by Glenys Quijano DO) Obesity, Class III, BMI 40-49.9 (morbid obesity) (Acute) Depression with anxiety (Acute) GERD (gastroesophageal reflux disease) (Chronic) Pre-diabetes (Acute) 6.4 Narcotic abuse in remission (Acute) HTN (hypertension) (Chronic) MRSA cellulitis (Acute) Abscess of left thigh (Acute) Scrotal abscess (Acute) Scrotal infection (Acute) Social History Smoking risk assessment performed?: No Housing: apartment Do you feel safe at home: Yes Time Spent with Patient Time Spent with Patient: <45 minutes Time was spent: preparing to see the patient(eg.review tests), obtaining and/or reviewing separately otained hiistory, ordering medications,tests, procedures, referring, communicating with other health child care attendant, indepentently interpreting results, counseling the patient and care coordination
[2023-10-13 15:26] VITALS: BP 100/58; PULSE 77; RESP 20; TEMP 36; O2SAT 97
--- NOTE | 2023-10-13 15:48 | PDOC.HHF2F_ITS ---
Home Health Referral Home Health Orders Medical diagnosis necessitation home health referral: MRSA abscess of left thigh and scrotum. He has a history of prior MRSA infections. Registered Nurse: Check all that apply Assess for exacerbation of medical condition, instruct patient/caregivers on signs and symptoms to report for early detection: Ordered Assess wound for signs and symptoms of infection, instruct on wound care and/or provide skilled wound care consisting of: Wound care and packing to left thigh wound. This wound is 4x .5x.5cm. this wound will need to be washed with soap and water and packed daily. Patient can remove packing and shower prior to dressing change. And then have the left thigh wound packed. The scrotal wound does not require any further packing. Patient will go home with quarter inch packing, from the hospital. Precautions List Precautions: MRSA Home Bound Status Patient has a condition such that leaving home is medically contraindicated (Describe): infection/open wound/MRSA Describe why leaving home would require a considerable and taxing effort: Side effects from pain medication (sedation/drowsiness) Encounter Date and Reason: I certify that a FTF encounter for this patient was performed on October 13, 2023 and that such encounter was related to the primary reason the patient requires home health services. The encounter was conducted in the following manner: * By me as the certifying physician, FLOORING INSTALLER, PA or * By an inpatient physician, FLOORING INSTALLER or PA during an inpatient stay who communicated findings to me, Certification And Authentication I certify that I composed the above information based on my clinical judgment relating to this patient's medical condition and, if applicable, clinical findings communicated to me by the NPP or inpatient physician who performed the FTF encounter. Name of Provider that will be monitoring home health services: Glenys Quijano
--- NOTE | 2023-10-13 17:47 | PDOC.CMDIS ---
Date of service: 10/13/23 Time of Service: 17:47 LACE Index Scoring Tool Questions: Length of Stay (in days): 2 Was the patient admitted via the E.D.?: Yes E.D. Visits: 0 Answers: Total Score: 5 Risk of Readmission: Low Risk Care Management Discharge Plan Reason for Hospitalization: scrotal abscess Discharge Plan: Mike will return home with new orders for HH RN for wound care. He will transport home via private vehicle by a friend. He will follow up with his PCP, surgical services, and his discharge plan of care. Patient/Family Education Needs: Review discharge instructions and limitations, discussion of self care needs including ask me three. Services Needed at Discharge: Home Health Care Services (HH RN for dressing changes) SDOH Health Related Social Needs: Health related social needs details pt lives in [facility], Health related social needs details: pt lives in [facility]
== END 2023-10-13 17:21 | disposition home or self-care (01) ==
LOC: ER 23:39 → SUR 10-11 00:35 → MS 10-11 02:06
PROVIDERS: Surgery; Admitting Provider Surgery; Emergency Provider Physician Assistant; Visit Provider Surgery
PROC: (CPT 10061; principal; 2023-10-10 23:50)
DX: N49.2 Inflammatory disorders of scrotum (principal); L02.416 Cutaneous abscess of left lower limb; B95.62 Methicillin resistant Staphylococcus aureus infection as the cause of diseases classified elsewhere; I10 Essential (primary) hypertension; R73.03 Prediabetes; Z68.42 Body mass index [BMI] 45.0-49.9, adult; K21.9 Gastro-esophageal reflux disease without esophagitis; E66.01 Morbid (severe) obesity due to excess calories; F41.8 Other specified anxiety disorders; D68.61 Antiphospholipid syndrome; Z79.01 Long term (current) use of anticoagulants; F11.20 Opioid dependence, uncomplicated; Z79.899 Other long term (current) drug therapy
CPT/HCPCS: 10061; 36415; 80053; 83690; 84145; 85027; 85652; 87040; 87077; 87491; 87591; 87641; 96365; 96366; 96367; 96372; 96374; 96375; 96376; 99285; 74177; 76870; 80202; 81003; 81015; 82565; 83036; 83605; 85025; 86140; 87070; 87075; 87186; 87205; C9290; G0378; J0131; J0665; J1100; J1170; J1171; J1650; J2250; J2405; J2704; J3010; J3370; J3372; J3475; J3490

== ENCOUNTER 2023-12-25 02:28 | Emergency (ER) | payer MEDICAID, SELFPAY ==
[2023-12-25 02:29] VITALS: BP 140/100; PULSE 106; RESP 18; TEMP 36.3
--- NOTE | 2023-12-25 02:29 | ED.GENADUL_ITS ---
Discharge Plan Disposition Patient Disposition: Home Condition: Good Discharge Details Clinical Impression: Internal derangement of knee, acute ED Provider: Jean Cruz and New Rx's Prescriptions: Continued pantoprazole 40 mg tablet,delayed release (DR/EC) 40 mg PO DAILY venlafaxine [Effexor XR] 150 mg capsule,extended release 24hr 150 mg PO DAILY lisinopril 10 mg tablet 10 mg PO DAILY quetiapine [Seroquel XR] 150 mg PO HS buprenorphine-naloxone [Suboxone] 12 mg sublingual BID enoxaparin [Lovenox] 150 mg/mL syringe 150 mg subcut Q12H Discharge Instructions Instructions: Internal Derangement of the Knee Additional Instructions: Your history and exam is consistent with probable meniscal injury to your knee. There does not appear to be significant tendon or ligamentous injury though in the acute phase this is sometimes difficult. I do recommend using the knee immobilizer and crutches, weight-bear as tolerated over the next few days. It would be important to keep your leg elevated is much as possible and ice the knee on and off throughout the day. You may use Tylenol for pain but should avoid the nonsteroidal since you are on Lovenox. I have asked for referral from care management to help establish PCP. If you are not having improvement to your knee over the next week or two may try to arrange for follow-up with orthopedics. Return to ED for any diffuse leg swelling, redness, fever, chest pain, shortness of breath. Referrals: Care Management [Provider Group] [facility] [Provider Group] HPI General Mode of arrival: EMS . Date/Time Provider Initiated Documentation: 12/25/23 02:29 . Limitations to Documentation: no limitations . Information obtained by: patient, RN notes reviewed and old records reviewed (Obtained records from ED visit to [place]) . HPI Narrative: Patient presents to ED by ambulance for worsening right knee pain. Patient had been at [facility] earlier this afternoon. He reports that he had been at [facility] when he simply turned and pivoted and felt sharp pain in his knee. Reports that his knee swelled up and he has significant difficulty walking. He had been taken to [place] ER earlier in the day. He reports that they were not very clear on what they thought had happened or what he should be doing for management and follow-up. He states that they seem to be more upset that he was brought to their ED from [place]. He was given a knee immobilizer and crutches which he admits he has not really been using. He thought it was getting better but tonight after going up some stairs much worse. Still localized to the knee only. He is on Lovenox for DVT. He is not having pain anywhere in the right leg except the knee. He has no chest pain or shortness of breath. Related Data Home Medications Medication Instructions Recorded Confirmed buprenorphine-naloxone 12 mg sublingual BID 10/10/23 12/25/23 enoxaparin 150 mg/mL subcutaneous 150 mg subcut Q12H 10/10/23 12/25/23 syringe (Lovenox) lisinopril 10 mg tablet 10 mg PO DAILY 10/10/23 12/25/23 pantoprazole 40 mg tablet,delayed 40 mg PO DAILY 10/10/23 12/25/23 release quetiapine 150 mg PO HS 10/10/23 12/25/23 venlafaxine 150 mg 150 mg PO DAILY 10/10/23 12/25/23 capsule,extended release 24 hr (Effexor XR) Allergies Allergy/AdvReac Type Severity Reaction Status Date / Time ceftriaxone Allergy Other (See Verified 12/25/23 02:35 Comment) diphenhydramine Allergy Other (See Verified 12/25/23 02:35 [From Ba] Comment) keflex Allergy Other (See Uncoded 12/25/23 02:35 Comment) rocephin Allergy Other (See Uncoded 12/25/23 02:35 Comment) General MAR: 3 Review of Systems Narrative: Per HPI Exam Narrative Exam Narrative: Const: Obese male in NAD. VS per triage. HEENT: NC/AT. Normal facial exam. Neck: Supple. Trachea midline. Lungs: Normal respiratory effort. Cor: Good distal pulses. Neuro: A+O x 3. Normal speech, mentation. Cranial nerves II - XII grossly intact. No gross motor or sensory deficit. Ext: No C/C/E. Right knee does appear to have some swelling especially laterally. He is tender along the lateral meniscus. He has difficulty flexing because of pain. He is able to extend and lift his heel off the stretcher. He has no tenderness around the patella. He has no tenderness over the fibular head. He is neurovascularly intact distally. Medical Decision Making Patient presenting to ED with worsening right knee pain. Sounds like he probably does have a meniscal injury from the pivot with resulting pain and swelling. X-rays from [place] were negative per the ED records which we were able to obtain. Patient quad and patella tendon are intact. He is neurovasc ularly intact. He does have swelling and tenderness laterally. This is isolated to the knee and I have no concern for recurrent DVT. Patient is reassured. He is also encouraged to use the knee immobilizer and crutches. He should attempt to stay off his leg is much as possible over the next few days and ice. Because he is on Lovenox I would not recommend nonsteroidals. I do recommend acetaminophen 1 g every 6-8 hours. He reports no PCP in the area as he is just taken up residence in a sober house. Will have care management reach out to help establish same. May need follow-up with orthopedics given previous knee injury and recurrent pain and swelling. He is safe for discharge home and is given a dose of Tylenol here. Return precautions provided. Medical Records Medical records reviewed: Yes I reviewed the patient's medical records. Medical records narrative: X-rays from [place] were read as negative. Quality:SDOH Health Related Social Needs: Health related social needs details pt lives in [facility], Health related social needs details: no PCP; no consistent transportation Referrals and interventions: care management referral [facility] All Active Problems (Updated 12/25/23 @ 03:11 by Jean Cruz MD) Internal derangement of knee, acute (Acute) Depression with anxiety (Acute) Pre-diabetes (Acute) 6.4 Narcotic abuse in remission (Acute) MRSA cellulitis (Acute) Abscess of left thigh (Acute) Medical History DVT (deep venous thrombosis) GERD (gastroesophageal reflux disease) HTN (hypertension) Obesity, Class III, BMI 40-49.9 (morbid obesity) Social History Smoking risk assessment performed?: No Alcohol Intake: never Drug use: Never Substance use type: does not use Housing: apartment Do you feel safe at home: Yes
[2023-12-25] MEDS: Acetaminophen 500 MG TAB 1000 MG PO (03:09)
--- NOTE | 2023-12-25 03:33 | NUR.NOTE ---
Referral to Care Management to establish pcp in a week or two for f/u of Internal Knee derangement.Nursing Note:
== END 2023-12-25 03:25 | disposition home or self-care (01) ==
LOC: ER 04:49
PROVIDERS: Emergency Provider Emergency Medicine
DX: M23.91 Unspecified internal derangement of right knee (principal)
CPT/HCPCS: 99282

== ENCOUNTER 2023-12-25 16:17 | Emergency (ER) | payer MEDICAID, SELFPAY ==
[2023-12-25] VITALS (57 sets, daily range): BP systolic 119–215; BP diastolic 34–108; PULSE 71–125; RESP 11–30; TEMP 37; O2SAT 91–99
--- NOTE | 2023-12-25 16:23 | ED.GENADUL_ITS ---
Discharge Plan Discharge Details Chief Complaint: AMS/LOC Clinical Impression: Acute encephalopathy, Acute pain of right lower extremity, Crack cocaine use, Agitation, Delusions Primary Care Provider: None,None ED Provider: Enoc Lester [place] Meds and New Rx's Prescriptions: No Action pantoprazole 40 mg tablet,delayed release (DR/EC) 40 mg PO DAILY venlafaxine [Effexor XR] 150 mg capsule,extended release 24hr 150 mg PO DAILY lisinopril 10 mg tablet 10 mg PO DAILY quetiapine [Seroquel XR] 150 mg PO HS buprenorphine-naloxone [Suboxone] 12 mg sublingual BID enoxaparin [Lovenox] 150 mg/mL syringe 150 mg subcut Q12H HPI General Date/Time Provider Initiated Documentation: 12/25/23 16:23 . HPI Narrative: MDM This is an altered agitated normothermic but mildly tachycardic 33-year-old male with remote history of DVT with concern for intracranial hemorrhage versus acute electrolyte abnormality versus sympathomimetic toxidrome for which patient received emergent intramuscular dissociative dose ketamine and 4 mg/kg. Patient's documented weight in the [facility] EMR was 162 kg several years ago. He tolerated sedation well. RT was at bedside. Patient had an IV placed while he was sedated in his right upper extremity. Unfortunately this became dislodged. Patient became more agitated and received 5 mg of intramuscular midazolam. An ultrasound-guided left upper extremity IV was placed by nursing. Patient became agitated during CT scan and received an additional 1 mg/kg IV ketamine. He complains of right leg pain. Will assess his right lower extremity following sedation. Bilateral feet warm well-perfused so not concern for critical limb ischemia so I did not feel that the patient required a CTA of his lower extremities. No pain out of proportion to suggest necrotizing soft tissue infection. Will reassess for suicidal homicidal ideation. He never required restraints. 6 PM Negative troponin. Negative salicylates. Negative ethanol. CBC shows leukocytosis but no anemia. No thrombocytopenia. Normal ammonia. Comprehensive metabolic panel showing mild hypokalemia. No NIMESH. Mild hyperglycemia but no anion gap and normal bicarbonate??not consistent with DKA. Mildly elevated ALT. Similar to prior. Negative salicylate. 6:[address] head negative for any acute pathology. 8:08 PM Patient still paranoid. He continues to be altered seemingly somewhat dissociated still from ketamine. Will provide 5 mg of IV diazepam. No rigidity to suggest neuroleptic malignancy syndrome. No clonus to suggest serotonin syndrome. 10:24 PM On reassessment patient resting asleep pulse ox 97. Heart rate 76. 11:09 PM Patient remains asleep. His fianc?e reportedly called. He reportedly has history of using crack cocaine and reportedly gets agitated and requires mental health assessment. Patient is not yet medically cleared. Will continue to monitor in the ED and signed patient out to the oncoming overnight provider if he is not yet medically cleared. 11:56 PM Patient still sleeping. Pulse 63. 97% on room air. Will sign patient out to Dr. Cruz pending reassessment with possibility of mental health involvement if patient is persistently delusional. Chronic conditions affecting the care of the patient: buprenorphine use DVT History obtained from an outside historian: Paramedics External record review: [facility] E[facility] Diagnostic interpretations performed by me: Per my independent interpretation EKG shows: Sinus tachycardia at a rate of 105 with interventricular conduction delay and a QRS interval of 111 ms. DE within normal limits. QTc within normal limits. No ST segment abnormalities. No T wave versions. No prior for comparison. ]Medications: Ketamine IV fluids Social determinants of health affecting disposition: N/A Management discussed with: Dr. Cruz Treatment/interventions considered: N/A Response to therapies provided: Improved delusions status post ketamine HPI This is a 33-year-old male history of DVT and buprenorphine use arrived to the emergency department via EMS in the setting of right leg pain. Patient was reportedly staying at a sober house. He reportedly smoked some crack today. He was seen last night for right leg pain. He had recurrent right leg pain. Unable to obtain additional history secondary to the agitation of the patient. Exam General: Uncomfortable-appearing in no moderate distress speaking in complete sentences. Intermittently tearful. Head: Normocephalic, atraumatic. Eye:[Pupils equal, round reactive to light.] Extraocular eye movements intact. No conjunctival injection. No scleral icterus. Ear, nose, mouth, throat: Grossly normal inspection. Normal voice, handling secretions normally. Neck: Trachea midline. Cardiovascular: Well-perfused distal extremities. Rapid regular rate Respiratory: Nonlabored respiration. Clear lungs bilaterally. Gastrointestinal: Nondistended abdomen. Obese, soft Musculoskeletal: No lower extremity pitting edema. Moving all 4 extremities spontaneously. Right knee with no obvious signs of trauma beyond some mild lateral sided swelling. Unable to assess whether or not patient can straight leg raise. No tenderness to calf. On the medial aspect of the right calf there is a chronic appearing wound. No signs of surrounding erythema to suggest cellulitis. No fluctuance to suggest abscess. Wound shown in photo as follows: Skin: Normal for age and race, grossly normal temperature and turgor. No acute rash. Neurologic: GCS 14: E4, V4, M6 Psychiatric: Agitated and appropriate perseverating on police. Intermittently making threats towards nurses reportedly. No pressured speech. Delusional. Related Data Home Medications Medication Instructions Recorded Confirmed buprenorphine-naloxone 12 mg sublingual BID 10/10/23 12/25/23 enoxaparin 150 mg/mL subcutaneous 150 mg subcut Q12H 10/10/23 12/25/23 syringe (Lovenox) lisinopril 10 mg tablet 10 mg PO DAILY 10/10/23 12/25/23 pantoprazole 40 mg tablet,delayed 40 mg PO DAILY 10/10/23 12/25/23 release quetiapine 150 mg PO HS 10/10/23 12/25/23 venlafaxine 150 mg 150 mg PO DAILY 10/10/23 12/25/23 capsule,extended release 24 hr (Effexor XR) Allergies Allergy/AdvReac Type Severity Reaction Status Date / Time ceftriaxone Allergy Other (See Verified 12/25/23 02:35 Comment) diphenhydramine Allergy Other (See Verified 12/25/23 02:35 [From Benadryl] Comment) keflex Allergy Other (See Uncoded 12/25/23 02:35 Comment) rocephin Allergy Other (See Uncoded 12/25/23 02:35 Comment) General Stated Complaint: AMS/LOC MAR: 3 Medical Decision Making Quality:SDOH Health Related Social Needs: 2 Health related social needs details no PCP; no consist ent transportation Critical Care Time Critical Care Time Critical Care Time: Yes Total Critical Care Time: 30 Attestation: Agitation bedside assessment monitoring PFSH All Active Problems (Updated 12/25/23 @ 23:15 by Enoc Lester MD) Delusions (Acute) Agitation (Acute) Crack cocaine use (Acute) Acute pain of right lower extremity (Acute) Acute encephalopathy (Acute) Internal derangement of knee, acute (Acute) Depression with anxiety (Acute) Pre-diabetes (Acute) 6.4 Narcotic abuse in remission (Acute) MRSA cellulitis (Acute) Abscess of left thigh (Acute) Medical History DVT (deep venous thrombosis) GERD (gastroesophageal reflux disease) HTN (hypertension) Obesity, Class III, BMI 40-49.9 (morbid obesity) Social History Smoking/Tobacco Use Status: Current every day Tobacco Type: e-cigarettes Smoking risk assessment performed?: Yes Alcohol Intake: never Substance use type: crack/cocaine Details: pt reported he used crack [employer] Housing: apartment Do you feel safe at home: Yes
--- NOTE | 2023-12-25 16:45 | RT.EKG_ITS ---
APPROVED REPORT Exam: Resting ECG Reason for Exam: Altered Patient Location: E HR:105 bpm ECG Measurements Heart Rate 105 AXIS WA 165 P 55 QRSd 111 QRS 45 QT 359 T 30 QTc 476 Conclusion Sinus tachycardia...rate> 99 Sinus tachycardia at a rate of 105 with interventricular conduction delay and a QRS interval of 111 m s. WA within normal limits. QTc within normal limits. No ST segment abnormalities. No T wave vers ions. No prior for comparison.
[2023-12-25] MEDS: Ketamine 500 MG/5 ML VIAL 650 MG IM (16:53)
[2023-12-25 17:18] LABS: Abs Immature Grans 0.05 10^3/uL (0.0-0.06); Absolute Monocyte Count 1.41 10^3/uL (0.1-0.8); Absolute Neutrophil Count 8.12 10^3/uL (1.2-6.7); Basophils % 0.7 %; Eosinophils % 4.3 %; HCT 43.6 % (40.0-50.0); HGB 14.7 g/dL (13.5-17.5); Immature Grans % 0.4 %; Lymphocytes % 24.4 %; MCH 27.2 pg (27.0-33.0); MCHC 33.7 % (32.0-36.0); MCV 81 fL (80-95); Monocytes % 10.4 %; Neutrophils % 59.8 %; Platelet Count 262 10^3/uL (130-400); RDW 12.8 % (11.8-14.1); RDW-SD 37.2 fL; WBC 13.58 10^3/uL (4.4-10.8)
[2023-12-25 17:22] LABS: Absolute Eosinophil Count 0.58 10^3/uL (0.0-0.7); Absolute Lymphocyte Count 3.31 10^3/uL (1.2-3.4)
[2023-12-25 17:32] LABS: Salicylate < 2.8 mg/dL (<2.8)
[2023-12-25] MEDS: Midazolam 2 MG/2 ML VIAL 5 MG IM (17:37)
[2023-12-25 17:39] LABS: Acetaminophen < 2 ug/mL (10-30)
[2023-12-25] MEDS: Normal Saline 1,000 ML 1000 ML IV (17:41)
[2023-12-25 17:42] LABS: ALT 131 U/L (16-63); AST 69 U/L (15-37); Albumin 4.4 g/dL (3.4-5.0); Alkaline Phosphatase 67 U/L (46-116); Anion Gap 10.4 mmol/L (3-11); BUN 19 mg/dL (7-18); CO2 27.6 mmol/L (21.0-32.0); CREATININE 0.9 mg/dL (0.70-1.30); Calcium 9.2 mg/dL (8.5-10.1); Chloride 102 mmol/L (98-107); Estimated GFR 114.22 (mL/min/1.73m2); Glucose 164 mg/dL (74-106); Potassium 3.4 mmol/L (3.5-5.1); Sodium 140 mmol/L (136-145); Total Protein 8.7 g/dL (6.4-8.2); Troponin I < 50 ng/L (< or =60)
[2023-12-25 17:47] LABS: ETHANOL BLOOD < 3.0 mg/dL (<10)
[2023-12-25 17:55] LABS: Ammonia 26 umol/L (11-32)
--- NOTE | 2023-12-25 18:05 | DI.CT_ITS ---
Exam(s) CT HEAD WO EXAM: CT HEAD WO CLINICAL HISTORY: Acute encephalopathy. TECHNIQUE: Imaging Protocol: Axial computed tomography images with coronal and sagittal reformatted images were created and reviewed COMPARISON: No exams were available for comparison FINDINGS: Ventricles and Extra axial spaces: Normal in size and morphology for the patient's age. Hemorrhage: None. Cerebral parenchyma: No evidence of acute infarct or mass. Midline shift: None. Brainstem/Cerebellum: Normal. Calvarium: Normal. Visualized Paranasal sinuses:Clear. Mastoids: Clear. Soft Tissues: Unremarkable. ORBITS: Unremarkable. PITUITARY: Not enlarged. IMPRESSION: No acute intracranial process. RADIATION DOSE DELIVERED: 1,126.48mGy.cm Total DLP DATA REPOSITORY: All CT scans at this facility are submitted to the National Radiology Data Registry (NRDR) Dose Index Registry (DIR) with the [employer] (ACR). RADIATION OPTIMIZATION: All CT scans at this facility use at least one of these dose optimization te chniques: automated exposure control; mA and/or kV adjustment per patient size (includes targeted exa ms where dose is matched to clinical indication); or iterative reconstruction.
[2023-12-25] MEDS: Ketamine 500 MG/10 ML VIAL 160 MG IVP (18:09)
--- NOTE | 2023-12-25 18:42 | DI.VRAD_ITS ---
PROCEDURE INFORMATION: Exam: CT Head Without Contrast Exam date and time: 12/25/2023 5:53 PM Age: 33 years old Clinical indication: Psychosis or psychotic disorder; Unspecified; Patient HX: Acute encephalopathy TECHNIQUE: Imaging protocol: Computed tomography of the head without contrast. Radiation optimization: All CT scans at this facility use at least one of these dose optimization techniques: automated exposure control; mA and/or kV adjustment per patient size (includes targeted exams where dose is matched to clinical indication); or iterative reconstruction. COMPARISON: No relevant prior studies available. FINDINGS: Brain: There is no acute intracranial hemorrhage, mass effect or midline shift. There is no large acute territorial cerebral infarct. Cerebral ventricles: No ventriculomegaly. Paranasal sinuses: Visualized sinuses are unremarkable. No fluid levels. Mastoid air cells: Visualized mastoid air cells are well aerated. Bones: Unremarkable. No acute fracture. Soft tissues: Unremarkable. IMPRESSION: No acute intracranial hemorrhage, mass effect or midline shift. Dictated and Authenticated by: Jumana Devlin MD. Ordering:MISSY Stubbs MD
--- NOTE | 2023-12-25 19:49 | NUR.NOTE ---
Nursing Note: Pt woke up and is not aware of where he is. Pt told multiple times that he is in the ED at [facility]. Pt does not recall the events of the day. Pt not aware of possible substance use. Keeps asking why he had surgery and if he is going to custodial.
[2023-12-25] MEDS: diazePAM 10 MG/2 ML SYR 5 MG IVP (20:15)
--- NOTE | 2023-12-25 23:00 | NUR.NOTE ---
Nursing Note: Spoke to pts dede about his condition today. Dede provided information on past and is willing to come if she needs to.
[2023-12-26] VITALS (35 sets, daily range): BP systolic 155–183; BP diastolic 87–91; PULSE 65–86; RESP 12–25; O2SAT 90–99
--- NOTE | 2023-12-26 01:09 | NUR.NOTE ---
Nursing Note: More alert, talking to his significant other. Food and drink provided
--- NOTE | 2023-12-26 03:45 | W.EDPROG ---
Date of service: 12/26/23 Time of Service: 06:36 Medical Decision Making Patient signed over to me pending reevaluation after sedatives have worn off. He had presented after using cocaine with resulting delirium and agitation. His workup was reassuring with a negative head CT. He has been sleeping throughout my shift. This morning he does awaken fairly easily but has difficulty staying awake. He still seems quite sedate and will need few more hours of recovery before discharging. He will be signed out to oncoming day physician for reevaluation. Quality:SDOH Health Related Social Needs: Health related social needs details no PCP; no consistent transportation Exam Narrative Exam Narrative: Const: Obese male in NAD. VS per triage. HEENT: NC/AT. Normal facial exam. Neck: Supple. Trachea midline. Lungs: Normal respiratory effort. Neuro: A+O x 2. Slow to respond. Cranial nerves II - XII grossly intact. No gross motor or sensory deficit. Sign Out Sign Out Data: Sign Out Comment: 33-year-old male requiring reassessment for right knee pain and delusions following crack cocaine earlier today. Patient received involuntary intramuscular ketamine 4 mg/kg in setting of agitation and delusions. Patient has had reassuring CT head and labs. He subsequently received 5 mg of midazolam and 1 mg/kg of IV ketamine to facilitate CT scan. He had additional agitation for which he received 5 mg of IV diazepam. He has been calm and sleeping. Reportedly has a history of similar symptoms in the past. To do: 1. Reassess when patient wakes up, 2. Reassess right knee pain, 3. Involved mental health if patient has persistent delusions. Last updated by Enoc Lester MD at 12/26/23 00:01 Discharge Plan Discharge Details Chief Complaint: AMS/LOC Clinical Impression: Acute encephalopathy, Acute pain of right lower extremity, Crack cocaine use, Agitation, Delusions Primary Care Provider: None,None ED Provider: Jean Cruz [place] Meds and New Rx's Prescriptions: No Action pantoprazole 40 mg tablet,delayed release (DR/EC) 40 mg PO DAILY venlafaxine [Effexor XR] 150 mg capsule,extended release 24hr 150 mg PO DAILY lisinopril 10 mg tablet 10 mg PO DAILY quetiapine [Seroquel XR] 150 mg PO HS buprenorphine-naloxone [Suboxone] 12 mg sublingual BID enoxaparin [Lovenox] 150 mg/mL syringe 150 mg subcut Q12H
--- NOTE | 2023-12-26 09:02 | W.EDPROG ---
Date of service: 12/26/23 Time of Service: 09:03 Medical Decision Making Care assumed from off going providers. Patient is a 33-year-old gentleman that presented yesterday with acute altered mental status secondary to substance use. Patient received ketamine and has been sleeping. This morning he woke up, has a normal mental status. Has no thoughts of self-harm or harm to others. He has no desire to stay in the hospital. He ate breakfast and was complaining of a little bit of muscle soreness. At this time he would like to be discharged back to his sober house. Quality:[facility] Health Related Social Needs: Health related social needs details no PCP; no consistent transportation Sign Out Sign Out Data: Sign Out Comment: 33-year-old male requiring reassessment for right knee pain and delusions following crack cocaine earlier today. Patient received involuntary intramuscular ketamine 4 mg/kg in setting of agitation and delusions. Patient has had reassuring CT head and labs. He subsequently received 5 mg of midazolam and 1 mg/kg of IV ketamine to facilitate CT scan. He had additional agitation for which he received 5 mg of IV diazepam. He has been calm and sleeping. Reportedly has a history of similar symptoms in the past. To do: 1. Reassess when patient wakes up, 2. Reassess right knee pain, 3. Involved mental health if patient has persistent delusions. Last updated by Enoc Lester MD at 12/26/23 00:01 Sign Out Comment: Patient still quite sedated from medications received overnight. He does awaken easily but has difficulty staying awake. Only complains of being extremely tired. Will need reevaluation later this morning for possible discharge. Last updated by Jean Cruz MD at 12/26/23 07:25 Discharge Plan Disposition Patient Disposition: Home Condition: Stable Discharge Details Clinical Impression: Acute encephalopathy, Acute pain of right lower extremity, Crack cocaine use, Agitation, Delusions Primary Care Provider: None,None ED Provider: Dora Hair Home Meds and New Rx's Prescriptions: No Action pantoprazole 40 mg tablet,delayed release (DR/EC) 40 mg PO DAILY venlafaxine [Effexor XR] 150 mg capsule,extended release 24hr 150 mg PO DAILY lisinopril 10 mg tablet 10 mg PO DAILY quetiapine [Seroquel XR] 150 mg PO HS buprenorphine-naloxone [Suboxone] 12 mg sublingual BID enoxaparin [Lovenox] 150 mg/mL syringe 150 mg subcut Q12H Discharge Instructions Additional Instructions: please avoid drug use and follow your sober living plan
[2023-12-26] MEDS: Acetaminophen 500 MG TAB (09:12)
== END 2023-12-26 09:12 | disposition home or self-care (01) ==
PROVIDERS: Emergency Medicine; Emergency Provider Emergency Medicine
DX: G93.40 Encephalopathy, unspecified (principal); M79.604 Pain in right leg; F14.950 Cocaine use, unspecified with cocaine-induced psychotic disorder with delusions
CPT/HCPCS: 00123; 36416; 80053; 82962; 93005; 96361; 96372; 96374; 96375; 99291; 70450; 80320; 80329; 82140; 84484; 85025; 93010; J2250; J3360

== ENCOUNTER 2023-12-26 21:34 | Emergency (ER) | payer MEDICAID, SELFPAY ==
[2023-12-26 21:37] VITALS: BP 155/100; PULSE 101; RESP 14; TEMP 37; O2SAT 98
--- NOTE | 2023-12-26 22:12 | W.ED.GENAD ---
Discharge Plan Discharge Details Chief Complaint: PsychEval Primary Care Provider: None,None ED Provider: Marline Bazzi Home Meds and New Rx's Prescriptions: No Action pantoprazole 40 mg tablet,delayed release (DR/EC) 40 mg PO DAILY venlafaxine [Effexor XR] 150 mg capsule,extended release 24hr 150 mg PO DAILY Patient Comments: stopped taking for a few days. Restarted today. lisinopril 10 mg tablet 10 mg PO DAILY quetiapine [Seroquel XR] 150 mg PO HS buprenorphine-naloxone [Suboxone] 12 mg sublingual BID enoxaparin [Lovenox] 150 mg/mL syringe 150 mg subcut Q12H HPI HPI Narrative: Mike is a 33-year-old male who presents to the emergency department today for evaluation of SI. He was discharged from the emergency department this morning after being treated for acute encephalopathy related to crack cocaine use. He came to the emergency department today via EMS because he is feeling very anxious and suicidal, says that he has been thinking about killing himself with an overdose because I will be the easiest way to go. He recently relapsed after being sober for 8 months, says he has been in and out of the habit at least 4 times, says that helps train him out. He has a bed available at [facility] tomorrow. He denies recent illness such as fever/chills, congestion, chest pain, cough, nausea/vomiting, change in p.o. intake, abdominal pain, change in bowel or bladder function. Denies significant past medical history. Denies recent drug use other than known crack cocaine use. He does take Suboxone twice daily, last dose was last night at 1 AM. Denies HI or current hallucinations, dental he does continue to report delusions voiced last night, including feeling like people were laughing at him and that he was attacked by emergency department staff. Physical exam remarkable for markedly anxious patient who exhibits flight of ideas/tangential thinking. He is fidgeting considerably during conversation, often requires redirection. Diaphoresis noted. Easy work of breathing, clear voice. Moving all extremities equally. He does have a healing wound on his right blel which he says is from previous surgeries, no surrounding erythema. History and presentation consistent with suicidal ideation and substance use. Labs obtained to rule out organic etiology/significant derangements. CBC, CMP, TSH, urine all reassuring. Drug screen positive for benzodiazepines and cocaine, consistent with patient history. EtOH, APAP, and ASA negative. 0: Lorazepam given for anxiety, as well as Suboxone (has not had PM dose). 0: Mike moved to zone B after medical clearance. He does continue to feel anxious and agitated, evening dose of Seroquel ordered. He is able to be verbally redirected by staff. Awaiting crisis evaluation. Handoff report given to Dr. Cruz, overnight physician. Related Data Home Medications Medication Instructions Recorded Confirmed buprenorphine-naloxone 12 mg sublingual BID 10/10/23 12/26/23 enoxaparin 150 mg/mL subcutaneous 150 mg subcut Q12H 10/10/23 12/26/23 syringe (Lovenox) lisinopril 10 mg tablet 10 mg PO DAILY 10/10/23 12/26/23 pantoprazole 40 mg tablet,delayed 40 mg PO DAILY 10/10/23 12/26/23 release quetiapine 150 mg PO HS 10/10/23 12/26/23 venlafaxine 150 mg 150 mg PO DAILY 10/10/23 12/26/23 capsule,extended release 24 hr (Effexor XR) Allergies Allergy/AdvReac Type Severity Reaction Status Date / Time ceftriaxone Allergy Other (See Verified 12/26/23 21:48 Comment) diphenhydramine Allergy Other (See Verified 12/26/23 21:48 [From Benadryl] Comment) keflex Allergy Other (See Uncoded 12/26/23 21:48 Comment) rocephin Allergy Other (See Uncoded 12/26/23 21:48 Comment) General Stated Complaint: PsychEval MAR: 2 Review of Systems Narrative: see HPI Exam Const General: cooperative, well developed, anxious and diaphoretic Resp Effort & Inspection: normal respiratory effort and able to speak in complete sentences Neuro General: gait normal, tone normal and moves all extremities Speech: speech normal Psych Appearance: disheveled Speech and Movement: restless Mood: anxious mood Affect: anxious affect and irritable affect Attitude: cooperative Thought Process: flight of ideas, perseverating and tangential Thought Content: delusions (persisting from last night) and suicidality Course Vital Signs Vital signs: Vital Signs Temperature 37 C 12/26/23 21:37 Pulse 101 H 12/26/23 21:37 Respiratory Rate 14 12/26/23 21:37 Blood Pressure 155/100 H 12/26/23 21:37 Pulse Oximetry 98 12/26/23 21:37 Temperature 37 C 12/26/23 21:37 Temperature Source Temporal Artery Scan 12/26/23 21:37 Pulse 101 H 12/26/23 21:37 Respiratory Rate 14 12/26/23 21:37 Blood Pressure 155/100 H 12/26/23 21:37 Blood Pressure Position Sitting 12/26/23 21:37 Pulse Oximetry 98 12/26/23 21:37 Oxygen Delivery Method Room Air 12/26/23 21:37 Oxygen Flow Rate 0 12/26/23 21:37 Medical Decision Making Quality:SDOH Health Related Social Needs: Health related social needs details no PCP; no consistent transportation PFSH All Active Problems (Updated 12/25/23 @ 23:15 by Enoc Lester MD) Delusions (Acute) Agitation (Acute) Crack cocaine use (Acute) Acute pain of right lower extremity (Acute) Acute encephalopathy (Acute) Internal derangement of knee, acute (Acute) Depression with anxiety (Acute) Pre-diabetes (Acute) 6.4 Narcotic abuse in remission (Acute) MRSA cellulitis (Acute) Abscess of left thigh (Acute) Medical History DVT (deep venous thrombosis) GERD (gastroesophageal reflux disease) HTN (hypertension) Obesity, Class III, BMI 40-49.9 (morbid obesity) Social History Smoking/Tobacco Use Status: Current every day Tobacco Type: e-cigarettes Smoking risk assessment performed?: Yes Alcohol Intake: never Substance use type: crack/cocaine Details: pt reported he used crack [employer] Housing: apartment Do you feel safe at home: Yes
[2023-12-26] MEDS: LORazepam 1 MG TAB 2 MG PO (22:28)
[2023-12-26] MEDS: Buprenorphine/Naloxone 8 mg/2 mg FILM 1 EACH SL (22:28)
[2023-12-26 22:31] LABS: Bilirubin Small (Negative); Blood Negative (Negative); Clarity Clear (Clear); Glucose Negative (Negative); Ketones Negative (Negative); Leukocyte Esterase Negative (Negative); Nitrite Negative (Negative); Specific Gravity >= 1.030 (1.005-1.025); Urobilinogen 0.2 mg/dL (Up to 0.2); pH 5.5 (5-8)
[2023-12-26 22:32] LABS: Abs Immature Grans 0.02 10^3/uL (0.0-0.06); Absolute Basophil Count 0.06 10^3/uL (0.0-0.2); Absolute Eosinophil Count 0.43 10^3/uL (0.0-0.7); Absolute Lymphocyte Count 1.84 10^3/uL (1.2-3.4); Absolute Monocyte Count 0.77 10^3/uL (0.1-0.8); Basophils % 0.8 %; Eosinophils % 5.6 %; HCT 41.3 % (40.0-50.0); Immature Grans % 0.3 %; Lymphocytes % 23.8 %; MCH 27.6 pg (27.0-33.0); MCHC 33.9 % (32.0-36.0); MCV 82 fL (80-95); MPV 11.2 fL (8.0-11.0); Neutrophils % 59.5 %; Platelet Count 226 10^3/uL (130-400); RBC 5.07 10^6/uL (4.36-5.78); WBC 7.72 10^3/uL (4.4-10.8)
[2023-12-26 22:45] LABS: WBC 0-2 HPF (0-5)
[2023-12-26 22:46] LABS: Bacteria Rare HPF (Negative); C & S Indicated? No; Casts Negative LPF (Negative); Crystals Negative HPF (Negative); Epithelial Cells Many HPF (Negative); Mucus Negative (Negative); RBC 0-2 HPF (0-2)
[2023-12-26 22:51] LABS: *AMPHETAMINES SCREEN URINE Negative (Negative); *BARBITURATES SCREEN URINE Negative (Negative); *BENZODIAZEPINES SCREEN URINE Positive (Negative); Cannabinoids THC Negative (Negative); Cocaine Screen,Urine Positive (Negative); METHADONE URINE SCREEN Negative (Negative); OPIATES URINE SCREEN Negative (Negative)
[2023-12-26 22:51] LABS: Salicylate < 2.8 mg/dL (<2.8)
[2023-12-26 22:52] LABS: Acetaminophen < 2 ug/mL (10-30)
[2023-12-26 22:52] LABS: Tricyclic Antidepressants Negative (Negative)
[2023-12-26 22:54] LABS: ALT 133 U/L (16-63); AST 70 U/L (15-37); Alkaline Phosphatase 63 U/L (46-116); Anion Gap 11.8 mmol/L (3-11); BUN 15 mg/dL (7-18); CO2 26.2 mmol/L (21.0-32.0); Calcium 8.9 mg/dL (8.5-10.1); Chloride 102 mmol/L (98-107); ETHANOL BLOOD < 3.0 mg/dL (<10); Estimated GFR 100.66 (mL/min/1.73m2); Glucose 193 mg/dL (74-106); Potassium 3.5 mmol/L (3.5-5.1); Sodium 140 mmol/L (136-145); TSH (W/Ref FT4) 0.79 uIU/mL (0.36-3.74); Total Protein 8.3 g/dL (6.4-8.2)
--- NOTE | 2023-12-27 06:45 | W.EDPROG ---
Date of service: 12/27/23 Time of Service: 06:45 Medical Decision Making Patient is kept overnight pending hopeful placement at [facility]. [facility] did speak with [facility] overnight. They do not have record of him calling. Patient is reporting that he spoke to a Melonie. Plan is for [facility]/care management to reach out to [facility] for placement. Patient is very tenuous in regards to his emotional lability. Did become rather irate and agitated early last night but I was able to redirect and diffuse the situation. His labs obtained last night are fine and he is cleared for placement for detox/rehab. Daily medications are ordered. Signed out to oncoming ED physician. Lab Data Lab results reviewed: Yes I reviewed the patient's lab results. Quality:SDOH Health Related Social Needs: Health related social needs details no PCP; no consistent transportation Sign Out Sign Out Data: Sign Out Comment: 33-year-old male presented to the emergency department today for suicidal ideation after relapsing last night. He is medically cleared. Continues to be agitated/anxious and redirectable. Nighttime Seroquel ordered. He has already received lorazepam 2 mg without effect, as well as Suboxone. Awaiting transfer to [facility] in the morning, national secretary/nursing staff to confirm status of bed placement Last updated by Marline Bazzi at 12/26/23 23:19 Discharge Plan Discharge Details Chief Complaint: PsychEval Clinical Impression: Cocaine abuse, Agitation Primary Care Provider: None,None ED Provider: Jean Cruz Vanleer Medaddis and New Rx's Prescriptions: No Action pantoprazole 40 mg tablet,delayed release (DR/EC) 40 mg PO DAILY venlafaxine [Effexor XR] 150 mg capsule,extended release 24hr 150 mg PO DAILY Patient Comments: stopped taking for a few days. Restarted today. lisinopril 10 mg tablet 10 mg PO DAILY quetiapine [Seroquel XR] 150 mg PO HS buprenorphine-naloxone [Suboxone] 12 mg sublingual BID enoxaparin [Lovenox] 150 mg/mL syringe 150 mg subcut Q12H
[2023-12-27] MEDS: Buprenorphine/Naloxone 12 mg/3 mg FILM 1 EACH SL (08:21)
[2023-12-27] MEDS: Lisinopril 10 MG TAB PO (08:22)
[2023-12-27] MEDS: Pantoprazole 40 MG TABCR PO (08:22)
[2023-12-27] MEDS: Venlafaxine 150 MG CAPCR PO (08:22)
[2023-12-27 08:24] VITALS: BP 120/73; PULSE 68; RESP 18; TEMP 36.1; O2SAT 96
--- NOTE | 2023-12-27 08:35 | NUR.NOTE ---
Nursing Note: provider notes faxed to [facility] regarding potential placement.
--- NOTE | 2023-12-27 15:44 | PDOC.CMPRO ---
Date of service: 12/27/23 Time of Service: 15:44 Care Management Progress Note Progress Note Text Progress Note Text: CM received a call from KATIE Stern, who stated that they are signing off, as he is not meeting criteria for inpatient psychiatric treatment. Per report, Mike has been working on getting in to [facility], with support from recovery coaches. CM contacted the refinery operator light ends recovery, spoke to Jeffrey, who reported that [facility] is considering Mike for admission today. Jeffrey stated that Mike has been staying at the [facility] in [facility], but is not able to return at this time. Jeffrey reported that Mike has been offered to stay in emergency housing while waiting for a bed at [facility], but he has recently declined. CM called [facility] multiple times; admissions stated that he is still under review. If no bed is available at [facility], he can be discharged to the community; he may be able to stay in the emergency housing that recovery coaches have offered, to keep him safe until he is able to go to treatment at . He is not seeking inpatient psychiatric treatment and has been medically cleared. CM will continue to follow. SDOH(Care Management) Screening Will the Patient Participate in the Screening?: Unable to obtain
--- NOTE | 2023-12-27 16:34 | W.EDPROG ---
Date of service: 12/27/23 Time of Service: 16:34 Medical Decision Making Care was signed out by Dr. Cruz, please see his documentation regarding prior ED course. Plan at signout was to await for care management resources and designated agency involvement. I reassessed the patient and he has had depression and fleeting passive suicidal thoughts. He is not currently suicidal. He is interested in seeking treatment for his substance abuse and is interested in securing treatment at [facility]. I have spoken with care management who has communicated with the baseball coach. head men's golf coach has engaged with this patient and is willing to help with transportation to [facility] should he be excepted. [facility] is aware of the referral and is reviewing case. Quality:[place] Health Related Social Needs: Health related social needs details no PCP; no consistent transportation Sign Out Sign Out Data: Sign Out Comment: 33-year-old male presented to the emergency department today for suicidal ideation after relapsing last night. He is medically cleared. Continues to be agitated/anxious and redirectable. Nighttime Seroquel ordered. He has already received lorazepam 2 mg without effect, as well as Suboxone. Awaiting transfer to [facility] in the morning, front office secretary/nursing staff to confirm status of bed placement Last updated by Marline Bazzi at 12/26/23 23:19 Sign Out Comment: Pending reevaluation by [facility] will also need to reach out to [facility]. Last updated by Jean Cruz MD at 12/27/23 08:06 Discharge Plan Discharge Details Chief Complaint: PsychEval Clinical Impression: Cocaine abuse, Agitation, Depression Primary Care Provider: None,None ED Provider: Roscoe Dexter Home Meds and New Rx's Prescriptions: No Action pantoprazole 40 mg tablet,delayed release (DR/EC) 40 mg PO DAILY venlafaxine [Effexor XR] 150 mg capsule,extended release 24hr 150 mg PO DAILY Patient Comments: stopped taking for a few days. Restarted today. lisinopril 10 mg tablet 10 mg PO DAILY quetiapine [Seroquel XR] 150 mg PO HS enoxaparin [Lovenox] 150 mg/mL syringe 150 mg subcut Q12H buprenorphine-naloxone 8-2 mg film See Rx Instructions sublingual BID Patient Comments: confirmed dose w/Shauna Quiles Rx Instructions: 1 film in AM, 1/2 film in PM
--- NOTE | 2023-12-27 23:37 | W.EDPROG ---
Date of service: 12/27/23 Time of Service: 23:37 Medical Decision Making Awaiting callback from insurance specialist team with regards to availability of care bed and community. Patient resting comfortably no acute distress. Awaiting [facility] capacity if patient is amenable to care bed arranged by insurance specialist and such spaces available tomorrow patient can be discharged to await rehab placement Quality:SDOH Health Related Social Needs: Health related social needs details no PCP; no consistent transportation Sign Out Sign Out Data: Sign Out Comment: 33-year-old male presented to the emergency department today for suicidal ideation after relapsing last night. He is medically cleared. Continues to be agitated/anxious and redirectable. Nighttime Seroquel ordered. He has already received lorazepam 2 mg without effect, as well as Suboxone. Awaiting transfer to [facility] in the morning, escrow secretary/nursing staff to confirm status of bed placement Last updated by Marline Bazzi at 12/26/23 23:19 Sign Out Comment: Pending reevaluation by [facility] will also need to reach out to [facility]. Last updated by Jean Cruz MD at 12/27/23 08:06 Sign Out Comment: Patient is not suicidal. He is voluntary seeking substance use disorder treatment at [facility]. [facility] reviewing case. If case declined today, consider discharge with support by gymnastic coach. Last updated by Roscoe Dexter MD at 12/27/23 16:41 Discharge Plan Discharge Details Chief Complaint: PsychEval Clinical Impression: Cocaine abuse, Agitation, Depression Primary Care Provider: None,None ED Provider: Aleksey Nicole Home Meds and New Rx's Prescriptions: No Action pantoprazole 40 mg tablet,delayed release (DR/EC) 40 mg PO DAILY venlafaxine [Effexor XR] 150 mg capsule,extended release 24hr 150 mg PO DAILY Patient Comments: stopped taking for a few days. Restarted today. lisinopril 10 mg tablet 10 mg PO DAILY quetiapine [Seroquel XR] 150 mg PO HS enoxaparin [Lovenox] 150 mg/mL syringe 150 mg subcut Q12H buprenorphine-naloxone 8-2 mg film See Rx Instructions sublingual BID Patient Comments: confirmed dose w/Shauna Quiles Rx Instructions: 1 film in AM, 1/2 film in PM
--- NOTE | 2023-12-28 00:15 | ED.PROG_ITS ---
Date of service: 12/27/23 Time of Service: 23:45 Medical Decision Making This patient was signed out to me. Please see previous notes for H&P and initial eval. In brief, 33yo M pending placement for substance abuse. Medically cleared. Overnight no acute events. Signed out to oncoming physician, plan remains as above. Quality:SDMT Health Related Social Needs: Health related social needs details no PCP; no consist ent transportation Sign Out Sign Out Data: Sign Out Comment: 33-year-old male presented to the emergency department today for suicidal ideation after relapsing last night. He is medically cleared. Continues to be agitated/anxious and redirectable. Nighttime Seroquel ordered. He has already received lorazepam 2 mg without effect, as well as Suboxone. Awaiting transfer to [facility] in the morning, loan secretary/nursing staff to confirm status of bed placement Last updated by Marline Bazzi at 12/26/23 23:19 Sign Out Comment: Pending reevaluation by [facility] will also need to reach out to [facility]. Last updated by Jean Cruz MD at 12/27/23 08:06 Sign Out Comment: Patient is not suicidal. He is voluntary seeking substance use disorder treatment at [facility]. [facility] reviewing case. If case declined today, consider discharge with support by assistant coach. Last updated by Roscoe Dexter MD at 12/27/23 16:41 Sign Out Comment: awaiting callback from medical information specialist with regards to availability of sober living space in community while awaiting [facility] space Last updated by Aleksey Nicole MD at 12/27/23 23:48 Discharge Plan Discharge Details Chief Complaint: PsychEval Clinical Impression: Cocaine abuse, Agitation, Depression Primary Care Provider: None,None ED Provider: Mary Byrne Home Meds and New Rx's Prescriptions: No Action pantoprazole 40 mg tablet,delayed release (DR/EC) 40 mg PO DAILY venlafaxine [Effexor XR] 150 mg capsule,extended release 24hr 150 mg PO DAILY Patient Comments: stopped taking for a few days. Restarted today. lisinopril 10 mg tablet 10 mg PO DAILY quetiapine [Seroquel XR] 150 mg PO HS enoxaparin [Lovenox] 150 mg/mL syringe 150 mg subcut Q12H buprenorphine-naloxone 8-2 mg film See Rx Instructions sublingual BID Patient Comments: confirmed dose w/Shauna Quiles Rx Instructions: 1 film in AM, 1/2 film in PM
--- NOTE | 2023-12-28 07:37 | ED.PROG_ITS ---
Date of service: 12/28/23 Time of Service: 07:37 Medical Decision Making I received signout on this 33-year-old patient who is medically cleared pending placement in the setting of substance abuse. No active behavioral issues last shift. Will update documentation as clinically warranted and sign patient out t o the oncoming evening provider. 9:30 AM I spoke with patient's nurse Gilberto in zone B. [facility] reportedly wants a note that the patient was medically cleared. I faxed a brief progress note i ndicated that the patient was medically cleared. 12:15 PM Patient calm cooperative on reassessment. He denies suicidal ideation. He reportedly has a ride coming to take him to [facility]. Will discharge patient now. 1 PM I spoke with Petra Wilson from [facility] and provided her with an update. Quality:SDOH Health Related Social Needs: Health related social needs details no PCP; no consist ent transportation Sign Out Sign Out Data: Sign Out Comment: 33-year-old male presented to the emergency department today for suicidal ideation after relapsing last night. He is medically cleared. Continues to be agitated/anxious and redirectable. Nighttime Seroquel ordered. He has already received lorazepam 2 mg without effect, as well as Suboxone. Awaiting transfer to [facility] in the morning, beehive kil[employer] charcoal burner/nursing staff to confirm status of bed placement Last updated by Marline Bazzi at 12/26/23 23:19 Sign Out Comment: Pending reevaluation by [facility] will also need to reach out to [facility]. Last updated by Jean Cruz MD at 12/27/23 08:06 Sign Out Comment: Patient is not suicidal. He is voluntary seeking substance use disorder treatment at [facility]. [facility] reviewing case. If case declined today, consider discharge with support by recovery analyst. Last updated by Roscoe Dexter MD at 12/27/23 16:41 Sign Out Comment: awaiting callback from coding support specialist with regards to availability of sober living space in community while awaiting [facility] space Last updated by Aleksey Nicole MD at 12/27/23 23:48 Discharge Plan Discharge Details Chief Complaint: PsychEval Clinical Impression: Cocaine abuse, Agitation, Depression Primary Care Provider: None,None ED Provider: Enoc Lester Home Meds and New Rx's Prescriptions: Continued pantoprazole 40 mg tablet,delayed release (DR/EC) 40 mg PO DAILY venlafaxine [Effexor XR] 150 mg capsule,extended release 24hr 150 mg PO DAILY Patient Comments: stopped taking for a few days. Restarted today. lisinopril 10 mg tablet 10 mg PO DAILY quetiapine [Seroquel XR] 150 mg PO HS enoxaparin [Lovenox] 150 mg/mL syringe 150 mg subcut Q12H buprenorphine-naloxone 8-2 mg film See Rx Instructions sublingual BID Patient Comments: confirmed dose w/Shauna Quiles Rx Instructions: 1 film in AM, 1/2 film in PM Discharge Instructions Additional Instructions: You are seen in the emergency department for your substance abuse. You have been accepted to [facility]. Please return if you do not feel safe with yourself or if you have any thoughts of hurting yourself.
[2023-12-28 08:12] VITALS: BP 118/75; PULSE 69; RESP 15; TEMP 36; O2SAT 96
[2023-12-28] MEDS: Buprenorphine/Naloxone 8 mg/2 mg FILM 1 EACH SL (09:08)
[2023-12-28] MEDS: Lisinopril 10 MG TAB PO (09:08)
[2023-12-28] MEDS: Pantoprazole 40 MG TABCR PO (09:08)
[2023-12-28] MEDS: Venlafaxine 150 MG CAPCR PO (09:09)
== END 2023-12-28 12:46 ==
PROVIDERS: Nurse Practitioner Family; Emergency Provider Emergency Medicine
DX: F41.8 Other specified anxiety disorders (principal); R45.851 Suicidal ideations; R45.1 Restlessness and agitation; F14.10 Cocaine abuse, uncomplicated
CPT/HCPCS: 00123; 80053; 80307; 96372; 99285; H0046; 80320; 80329; 81003; 81015; 84443; 85025; J1650; J3490

== ENCOUNTER 2024-01-05 00:44 | Emergency (ER) | payer MEDICAID, SELFPAY ==
[2024-01-05 00:45] VITALS: PULSE 111; RESP 24; TEMP 36.7; O2SAT 96
[2024-01-05 00:50] VITALS: BP 158/80; PULSE 99; O2SAT 96
--- NOTE | 2024-01-05 01:15 | ED.GENADUL_ITS ---
Discharge Plan Disposition Patient Disposition: Home Condition: Good Discharge Details Clinical Impression: Muscle spasm Primary Care Provider: None,None ED Provider: Mary Byrne Home Meds and New Rx's Prescriptions: Continued pantoprazole 40 mg tablet,delayed release (DR/EC) 40 mg PO DAILY venlafaxine [Effexor XR] 150 mg capsule,extended release 24hr 150 mg PO DAILY Patient Comments: stopped taking for a few days. Restarted today. lisinopril 10 mg tablet 10 mg PO DAILY quetiapine [Seroquel XR] 150 mg PO HS enoxaparin [Lovenox] 150 mg/mL syringe 150 mg subcut Q12H buprenorphine-naloxone 8-2 mg film See Rx Instructions sublingual BID Patient Comments: confirmed dose ancelmo/Shauna Quiles Rx Instructions: 1 film in AM, 1/2 film in PM Discharge Instructions Instructions: Muscle Spasm ED Additional Instructions: Tylenol and ibuprofen over the counter for discomfort; follow the directions on the bottle. Continue taking all your medications including your lovenox. Call your primary care doctor on Sunday to schedule an appointment for within the next 72 hours to follow up on your visit today. Return to the emergency department if you develop swelling in your leg, worsening pain in your calf, chest pain, or shortness of breath as these are signs of life-threatening blood clot. HPI General Mode of arrival: ambulatory . Date/Time Provider Initiated Documentation: 01/05/24 00:51 . Limitations to Documentation: no limitations . Information obtained by: patient . HPI Narrative: 33yo M presenting with right leg pain. Was walking and felt my leg seize up, right calf was hard to the touch and he had severe pain. Fell to his knees and unable to walk. This lasted about 10 minutes after which it released. Currently mild right calf pain, no knee pain. No numbness, tingling, or weakness. No LE edema. Has been trying to stay hydrated today but it has been very hot. He is otherwise in his usual state of health with no fevers, chills, rash, nasuea, vomiting, chest pain, shortness of breath, or other concerns. Related Data Home Medications Medication Instructions Recorded Confirmed enoxaparin 150 mg/mL subcutaneous 150 mg subcut Q12H 10/10/23 01/05/24 syringe (Lovenox) lisinopril 10 mg tablet 10 mg PO DAILY 10/10/23 01/05/24 pantoprazole 40 mg tablet,delayed 40 mg PO DAILY 10/10/23 01/05/24 release quetiapine 150 mg PO HS 10/10/23 01/05/24 venlafaxine 150 mg 150 mg PO DAILY 10/10/23 01/05/24 capsule,extended release 24 hr (Effexor XR) buprenorphine 8 mg-naloxone 2 mg See Rx Instructions sublingual BID 12/27/23 01/05/24 sublingual film Allergies Allergy/AdvReac Type Severity Reaction Status Date / Time ceftriaxone Allergy Other (See Verified 01/05/24 00:56 Comment) diphenhydramine Allergy Other (See Verified 01/05/24 00:56 [From Laurean[facility]franklinl] Comment) keflex Allergy Other (See Uncoded 01/05/24 00:56 Comment) rocephin Allergy Other (See Uncoded 01/05/24 00:56 Comment) General Stated Complaint: Cellulitis MAR: 4 Review of Systems Narrative: see HPI Exam Narrative Exam Narrative: General: Alert, well appearing,, in no acute distress. Obese. Head: Normocephalic, atraumatic Neck: Trachea midline, ?Neck supple. ENT: ?MMM.? No oropharygeal lesions or exudate. Cardiac: ?RRR, no murmurs appreciated Resp: No respiratory distress. CTAB. Extremities: ?No LE edema. BLE symmetric 2+ DP pulses, symmetric. Knees nontender, no abrasions. RLE: Chronic wound to right bell, no signs of infection. Sensation to light touch intact throughout right bell/calf/foot. Brisk capillary refill. No calf tenderness. Neurologic: GCS 15. ? Moves all extremities freely against gravity Course Vital Signs Vital signs: Vital Signs Temperature 36.7 C 01/05/24 00:45 Pulse 111 H 01/05/24 00:45 Respiratory Rate 01/05/24 00:45 Pulse Oximetry 96 01/05/24 00:45 Temperature 36.7 C 01/05/24 00:45 Temperature Source Temporal Artery Scan 01/05/24 00:45 Pulse 99 H 01/05/24 00:50 Respiratory Rate 01/05/24 00:45 Respiratory Effort Normal 01/05/24 00:50 Blood Pressure 158/80 H 01/05/24 00:50 Blood Pressure Position Sitting 01/05/24 00:50 Pulse Oximetry 96 01/05/24 00:50 Oxygen Delivery Method Room Air 01/05/24 00:50 Oxygen Flow Rate 0 01/05/24 00:45 Pain Level 7 01/05/24 00:45 Comment lt calf 01/05/24 00:45 Medical Decision Making 33yo M presenting with right leg pain. Was walking and felt my leg seize up, right calf was hard to the touch and he had severe pain. This lasted about 10 minutes after which it released, still has slight right calf pain. Hypertensive and slightly tachycardiac on arrival after transfer from EMS stretcher. Repeat HR in 90's without intervention. Patient does have a history of DVTs however event today is entirely inconsistent with DVT and suggests muscle spasm; exam is without suggestion of DVT. He is currently on lovenox and states he has not missed any doses. No chest pain, pleurtic pain, hypoxia, or shortness of breath to suggest pulmonary embolism. Given tyelnol and ibuprofen for discomfort. Discussed with patient sending BMP and dimer to evaluate for electrolyte abnormalities (contributing to muscle spasm) or clot; patient declines blood work which is reasonable. I advised him that should his symptoms persist or worsen to re-present for medical care for possible DVT ultrasound (no US availability here currently, would not transfer for emergent ultrasound at this time. Discharged home (advised to followup with PCP for hypertension); discharge instructions and return precautions were reviewed with patient who verbalized understanding. All questions were answered and he is in full agreement with the plan. Quality:SDOH Health Related Social Needs: Health related social needs details no PCP; no consist ent transportation [facility] All Active Problems (Updated 01/05/24 @ 01:38 by Mary Byrne MD) Muscle spasm (Acute) Depression (Chronic) Agitation (Acute) Cocaine abuse (Acute) Delusions (Acute) Agitation (Acute) Crack cocaine use (Acute) Acute pain of right lower extremity (Acute) Acute encephalopathy (Acute) Internal derangement of knee, acute (Acute) Depression with anxiety (Acute) Pre-diabetes (Acute) 6.4 Narcotic abuse in remission (Acute) MRSA cellulitis (Acute) Abscess of left thigh (Acute) Medical History DVT (deep venous thrombosis) GERD (gastroesophageal reflux disease) HTN (hypertension) Obesity, Class III, BMI 40-49.9 (morbid obesity) Social History Smoking/Tobacco Use Status: Current every day Tobacco Type: e-cigarettes Tobacco: How many years used: 7 Smoking risk assessment performed?: Yes Alcohol Intake: never Drug use: Never Substance use type: crack/cocaine Details: 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
[2024-01-05] MEDS: Ibuprofen 800 MG TAB PO (01:19)
[2024-01-05] MEDS: Acetaminophen 500 MG TAB 1000 MG PO (01:19)
== END 2024-01-05 02:13 | disposition home or self-care (01) ==
PROVIDERS: Emergency Provider Student in an Organized Health Care Education/Training Program
DX: M79.661 Pain in right lower leg (principal); M62.838 Other muscle spasm; I10 Essential (primary) hypertension; F17.210 Nicotine dependence, cigarettes, uncomplicated; Z86.718 Personal history of other venous thrombosis and embolism
CPT/HCPCS: 99283

== ENCOUNTER 2024-01-05 05:47 | Emergency (ER) | payer MEDICAID, SELFPAY ==
--- NOTE | 2024-01-05 05:51 | ED.GENADUL_ITS ---
Discharge Plan Discharge Details Chief Complaint: PsychEval Primary Care Provider: None,None ED Provider: Mary Byrne Home Meds and New Rx's Prescriptions: No Action pantoprazole 40 mg tablet,delayed release (DR/EC) 40 mg PO DAILY venlafaxine [Effexor XR] 150 mg capsule,extended release 24hr 150 mg PO DAILY Patient Comments: stopped taking for a few days. Restarted today. lisinopril 10 mg tablet 10 mg PO DAILY quetiapine [Seroquel XR] 150 mg PO HS enoxaparin [Lovenox] 150 mg/mL syringe 150 mg subcut Q12H buprenorphine-naloxone 8-2 mg film See Rx Instructions sublingual BID Patient Comments: confirmed dose w/Shauna Quiles Rx Instructions: 1 film in AM, 1/2 film in PM HPI General Mode of arrival: ambulatory . Date/Time Provider Initiated Documentation: 01/05/24 05:51 . Limitations to Documentation: no limitations . Information obtained by: patient . HPI Narrative: 33yo with hx polysubstance use, depression, presenting for SI. Seen in this ED earlier today for leg pain. Recently discharged from [facility]. Unable to stay in sober housing; used cocaine earlier today (prior to initial visit). States he does not feel safe, thinking about dying but does not want . Denies HI, AH, VH. Since discharge from the ED earlier he reports thinking about how he has no place to go. Otherwise in his usual state of health, denies any changes from prior visit. Related Data Home Medications Medication Instructions Recorded Confirmed enoxaparin 150 mg/mL subcutaneous 150 mg subcut Q12H 10/10/23 01/05/24 syringe (Lovenox) lisinopril 10 mg tablet 10 mg PO DAILY 10/10/23 01/05/24 pantoprazole 40 mg tablet,delayed 40 mg PO DAILY 10/10/23 01/05/24 release quetiapine 150 mg PO HS 10/10/23 01/05/24 venlafaxine 150 mg 150 mg PO DAILY 10/10/23 01/05/24 capsule,extended release 24 hr (Effexor XR) buprenorphine 8 mg-naloxone 2 mg See Rx Instructions sublingual BID 12/27/23 01/05/24 sublingual film Allergies Allergy/AdvReac Type Severity Reaction Status Date / Time ceftriaxone Allergy Other (See Verified 01/05/24 06:00 Comment) diphenhydramine Allergy Other (See Verified 01/05/24 06:00 [From Benadryl] Comment) keflex Allergy Other (See Uncoded 01/05/24 06:00 Comment) rocephin Allergy Other (See Uncoded 01/05/24 06:00 Comment) General MAR: 4 Review of Systems Narrative: see HPI Exam Narrative Exam Narrative: General: Alert, well appearing, well nourished, in no acute distress. Head: Normocephalic, atraumatic Neck: Trachea midline, ?Neck supple. Cardiac: ?RRR, no murmurs appreciated Resp: No respiratory distress. CTAB. Abd: ?Soft, non-distended, nontender : ?No suprapubic tenderness. No CVA tenderness. Extremities: ?No deformities.? No peripheral edema. Healing chronic wound right bell. Neurologic: GCS 15. ? Moves all extremities freely against gravity Psych: Calm, cooperative.? Well groomed.? Mood anxious, affect congruent.? Speech with normal volume, rate, rythym and tone. Linear and goal directed.? Passive SI, denies HI/AH/VH. ? Does not appear to be responding to internal stimuli. Medical Decision Making 33yo with hx polysubstance use, depression, presenting for SI. Reports prior suicide attempts via overdose and hanging. Recently discharged from [facility]. Unable to stay in sober housing; used cocaine earlier today (prior to initial visit). Seen in this ED earlier today for leg pain; since discharge from the ED earlier he reports thinking about how he has no place to go. States he does not feel safe, thinking about dying but does not want . Vital signs and physical exam reassuring. No chest pain. Given recent cocaine use, will get EKG for medical clearance. I suspect there may be a component of secondary gain in his presentation today specifically need for housing. Will have [facility] evaluate patient. Signed out to oncoming physician, plan to followup [facility] eval. May be appropriate for outpatient treatment. Quality:SDOH Health Related Social Needs: Health related social needs details no PCP; no consist ent transportation PFSH All Active Problems (Updated 01/05/24 @ 01:38 by Mary Byrne MD) Muscle spasm (Acute) Depression (Chronic) Agitation (Acute) Cocaine abuse (Acute) Delusions (Acute) Agitation (Acute) Crack cocaine use (Acute) Acute pain of right lower extremity (Acute) Acute encephalopathy (Acute) Internal derangement of knee, acute (Acute) Depression with anxiety (Acute) Pre-diabetes (Acute) 6.4 Narcotic abuse in remission (Acute) MRSA cellulitis (Acute) Abscess of left thigh (Acute) Medical History DVT (deep venous thrombosis) GERD (gastroesophageal reflux disease) HTN (hypertension) Obesity, Class III, BMI 40-49.9 (morbid obesity) Social History Smoking/Tobacco Use Status: Current every day Tobacco Type: e-cigarettes Tobacco: How many years used: 7 Smoking risk assessment performed?: Yes Alcohol Intake: never Drug use: Binges Substance use type: crack/cocaine Details: pt used cocaine last night Housing: apartment Do you feel safe at home: Yes Do you feel safe in your relationship?: Yes
[2024-01-05 05:52] VITALS: BP 148/79; PULSE 87; RESP 14; TEMP 36.2; O2SAT 98
--- NOTE | 2024-01-05 06:15 | RT.EKG_ITS ---
APPROVED REPORT Exam: Resting ECG Reason for Exam: medical clearance Patient Location: E HR:92 bpm ECG Measurements Heart Rate 92 AXIS IL 166 P 47 QRSd 105 QRS 37 QT 367 T 21 QTc 455 Conclusion Sinus rhythm...normal P axis, V-rate 60- [address] segment or t wave abnormalities to suggest occlusive MO
--- NOTE | 2024-01-05 07:17 | PDOC.MHCN ---
Date of service: 01/05/24 Time of Service: 07:15 PHQ-9 Over the last 2 weeks, how often have you been bothered by any of the following problems? 1. Little interest or pleasure in doing things: several days 2. Feeling down, depressed, or hopeless: several days 3. Trouble falling or staying asleep, or sleeping too much: nearly every day 4. Feeling tired or having little energy: nearly every day 5. Poor appetite or overeating: not at all 6. Feeling bad about yourself - or that you are a failure or have let yourself and your family down: nearly every day 7. Trouble concentrating on things, such as reading the newspaper or watching television: several days 8. Moving or speaking so slowly that other people could have noticed? - Or the opposite - being so fidgety or restless that you have been moving around a lot more than usual: not at all 9. Thoughts that you would be better off or of hurting yourself in some way: several days Total score: 13 Source: Developed by Drs. Jean Corea, Varsha Newberry, Luis A Jama and colleagues, with an educational marcelino from [employer]. Mental Health Emergency Note Release [facility] release signed:: No Reason for Visit Mike reports to [facility] due to feeling unsafe in the community and wanting to return to treatment. In the last 2 weeks has the pt presented for ES prior to today?: Yes, presented at [facility] ED Client Information Client is: New Well Housed: No,status: Not homeless, Unstable housing Non Suicidal Self Injury Current: No History: No Safety Risk/Harm to Self or Others Current Ideation to Harm Self or Others: Yes to self. (Client reports he is currently having passive SI with a plan to overdose, but he does not want to act on these thoughts. ) Intent: no, has no intent. Plan: yes,has a plan. History of suicide attempt: yes,history of suicide attempt reported. Details of previous suicide attempt: Client reports attempting to overdose on cocaine yesterday with intent to . Risk: Does risk to harm exist?: yes. Access to means: No. Risk: Moderate Risk Duty to warn indicated: No Asssessment/Mental Status Appearance: Disheveled Attitude: Passive and Guarded Behavior: Poor impulse control and Gait disturbances Speech: Normal Affect: Cogruent with mood Mood: Sad, Stressed and Anxious Thought process: Unremarkable Hallucinations: No evidence Delusions: yes, Persectory/Paranoid Attention: Unremarkable Perception: Not impaired Orientation: Fully orientated Memory: Intact Insight: Fair Judgement: Fair Neurovegetative Symptoms Sleep: Decrease Appetitie: No change Interests: No change Energy: No change Libido: Not applicable Substance Use: Do you use nicotine?: No Have you used substances in the last 7 days?: yes, cocaine Additional Issues: Assaultive/Threatening Behavior: No Medical Concerns: No Client engaged in active self harm w/weapon: No Threatening to run away: No Child reported abuse/neglect: No Voluntarily presenting for services: Yes Domestic violence is a concern: No Extreme Psychosis or extreme behavior is present: No Impression Mike presented to [facility] reporting he wanted to seek treatment for his substance use and mental health. Mike presented to this designer writer sitting in hospital scrubs, in his room, and presents as emotional towards this designer writer. Mike reports that he is not doing well and describes himself as an emotional wreck. Mike reports that he was at [facility] receiving treatment for his substance usage, but he discharged and returned to the community. Mike reports yesterday he had several thoughts to harm himself which is when he attempted to overdose on cocaine to end his life. Mike disclosed he is still having thoughts that the world would be better off without him, and passive SI. Mike reports no thoughts of wanting to harm others. Mike reports that he has been struggling a lot recently. Mike reports that he has been having high anxiety and his PTSD has been affecting him. In addition to this, Mike reports he feels pending doom and like people are after him. Mike reports feeling like this for the last few days. Mike also reports he has not slept for the last day and a half. Plan/Disposition Recommended Disposition: Hospitalization (note will be sent out today, medical clearance needs to be faxed to [facility] to be faxed as well. ) facilities contacted. Plan: At this time, Mike presents as a client in need of treatment for both his mental health and substance use. Mike will remain at [facility] until a voluntary placement can be secured. Person reported agreement to plan: Yes Reports/communication Outcome discussed with: ED/Personnel
[2024-01-05] MEDS: Lisinopril 10 MG TAB PO (07:57)
[2024-01-05] MEDS: Venlafaxine 75 MG CAPCR 150 MG PO (07:58)
[2024-01-05] MEDS: diazePAM 5 MG TAB PO (11:04)
--- NOTE | 2024-01-05 16:31 | W.EDPROG ---
Date of service: 01/05/24 Time of Service: 19:11 Medical Decision Making Care assumed from off going provider. Patient is a 33-year-old gentleman with passive suicidal thoughts. Plan to overdose. Has a strong history of polysubstance abuse Has been evaluated by [facility] and is pending inpatient voluntary placement. Medical Records Medical records reviewed: Yes I reviewed the patient's medical records. Lab Data Lab results reviewed: Yes I reviewed the patient's lab results. Quality:[facility] Health Related Social Needs: Health related social needs details no PCP; no consistent transportation Sign Out Sign Out Data: Sign Out Comment: SI, discharged from [facility] yesterday, cocaine earlier today. Plan to overdose. Feels unsafe at home. Medically cleared. [facility] recc inpatient. Needs med rec and home meds ordered Last updated by Mary Byrne MD at 01/05/24 07:23 Sign Out Comment: Patient has been medically cleared. He has been assessed by mental health. They agree with potential inpatient admission. Patient remained stable Throughout the shift. No interventions needed. Pending placement. Last updated by Jason Hill DO at 01/05/24 14:26 Discharge Plan Discharge Details Chief Complaint: PsychEval Primary Care Provider: None,None ED Provider: Dora Hair Home Meds and New Rx's Prescriptions: No Action pantoprazole 40 mg tablet,delayed release (DR/EC) 40 mg PO DAILY venlafaxine [Effexor XR] 150 mg capsule,extended release 24hr 150 mg PO DAILY Patient Comments: stopped taking for a few days. Restarted today. lisinopril 10 mg tablet 10 mg PO DAILY quetiapine [Seroquel XR] 150 mg PO HS enoxaparin [Lovenox] 150 mg/mL syringe 150 mg subcut Q12H buprenorphine-naloxone 8-2 mg film See Rx Instructions sublingual BID Patient Comments: confirmed dose w/Shauna Quiles Rx Instructions: 1 film in AM, 1/2 film in PM
--- NOTE | 2024-01-05 18:00 | CMSP_ITS ---
Date of service: 01/05/24 Time of Service: 18:05 Care Management Safety Plan Status Status: Voluntary Reason for Wait Reason for Wait: Inpatient Admission Safety Plan Safety Plan: VOLUNTARY FOR INPATIENT PSYCHIATRIC STABILIZATION.? Patient is appropriate in all interactions since arriving at [facility]; Pt has demonstrated appropriate coping and communication skills, has articulated his or her needs and concerns and is fully engaged during staff interactions. Safety plan has been established with patient, and care team, to adhere to patient goals, identify restrictions based on behavioral status, address nutrition, and determine allowed personal belongings, tools for hygiene and personal care. Determine level of activity including ambulation, level of supervision, visitors, and determine privileges based on behaviors and level of engagement by pt. VOLUNTARY SAFETY PLAN: 1. Will remain on suicide precautions, in paper clothes 2. Will remain in Zone B under direct supervision of one-on-one staff at all times provided by [employer]; TALIA, BEEF TRIMMER fire sprinkler apparatus inspector. 3. May have paper cups, plates, finger foods as well as a cardboard spoon with which to eat meals. 4. Follow [facility] Management of the Admitted Behavioral Health Patient policy. 5. Shower available in Zone B without restriction. 6. Personal belongings-soft items permitted at RN discretion. 7. Visitors- at RN discretion. 8. Activities: soft cart items approved per RN discretion. 9.? Bathroom available in Zone B without restriction. 10. Phone: limited to [facility] cordless phone at RN discretion. Due to VOLUNTARY status, if patient wishes to leave [facility], staff will contact [facility] Crisis Screener ([phone]) and Bank Note Designer ([phone]) as soon as possible. In the event of elopement, notify [facility] Police ([phone]). Patient is currently voluntarily at [facility] and seeking inpatient admission when a bed becomes available. [facility] Frontline Home Appliance Technician will continue seeking pl acement. Please contact the Bank Note Designer ([phone]) and [facility] Home Appliance Technician ([phone]) for any needed changes in the Safety Plan. Safety plan has been provided to interdepartmental care team.
--- NOTE | 2024-01-05 18:00 | PDOC.CMSAFE ---
Date of service: 01/05/24 Time of Service: 18:05 Care Management Safety Plan Status Status: Voluntary Reason for Wait Reason for Wait: Inpatient Admission Safety Plan Safety Plan: VOLUNTARY FOR INPATIENT PSYCHIATRIC STABILIZATION.? Patient is appropriate in all interactions since arriving at [facility]; Pt has demonstrated appropriate coping and communication skills, has articulated his or her needs and concerns and is fully engaged during staff interactions. Safety plan has been established with patient, and care team, to adhere to patient goals, identify restrictions based on behavioral status, address nutrition, and determine allowed personal belongings, tools for hygiene and personal care. Determine level of activity including ambulation, level of supervision, visitors, and determine privileges based on behaviors and level of engagement by pt. VOLUNTARY SAFETY PLAN: 1. Will remain on suicide precautions, in paper clothes 2. Will remain in Zone B under direct supervision of one-on-one staff at all times provided by [employer]; TALIA, AUTOMOTIVE ELECTRICAL HELPER stitcher set up operator automatic. 3. May have paper cups, plates, finger foods as well as a cardboard spoon with which to eat meals. 4. Follow [facility] Management of the Admitted Behavioral Health Patient policy. 5. Shower available in Zone B without restriction. 6. Personal belongings-soft items permitted at RN discretion. 7. Visitors- at RN discretion. 8. Activities: soft cart items approved per RN discretion. 9.? Bathroom available in Zone B without restriction. 10. Phone: limited to [facility] cordless phone at RN discretion. Due to VOLUNTARY status, if patient wishes to leave [facility], staff will contact [facility] Crisis Screener ([phone]) and Clinic Physician Director ([phone]) as soon as possible. In the event of elopement, notify [facility] Police ([phone]). Patient is currently voluntarily at [facility] and seeking inpatient admission when a bed becomes available. [facility] Frontline Supervisor Kennel will continue seeking placement. Please contact the Clinic Physician Director ([phone]) and [facility] Supervisor Kennel ([phone]) for any needed changes in the Safety Plan. Safety plan has been provided to interdepartmental care team.
--- NOTE | 2024-01-05 18:06 | PDOC.CMPRO ---
Date of service: 01/05/24 Time of Service: 18:06 Care Management Progress Note Progress Note Text Progress Note Text: Mike recently went from [facility] to [facility] for substance use treatment. Per Mike, he left yesterday, prior to the end of the program, and used cocaine with a plan to overdose. Mike reports that he is currently homeless; he is not able to return to the sober house he was staying at previously. He is connected with the recovery coaches from [facility]. Mike met with [facility]; he meets criteria for inpatient psychiatric placement. Referrals have been sent to all accepting hospitals. CM huddled with staff to discuss his plan of care. Safety plan in place. CM will continue to follow.
[2024-01-05] MEDS: Acetaminophen 500 MG TAB 1000 MG PO (22:35)
[2024-01-06] MEDS: Nicotine 21 MG/24 HR PATCH TD (00:13)
--- NOTE | 2024-01-06 08:34 | W.EDPROG ---
Date of service: 01/06/24 Time of Service: 08:34 Medical Decision Making I received signout on this 33-year-old patient in the emergency department voluntarily in the setting of suicidal ideation. Patient is medically cleared. No active behavioral issues last shift. Will update documentation as clinically warranted and signed patient out to the [facility] evening provider. 11:45 AM I spoke with Maria Teresa from [facility] who reported that the patient had referrals in place. 4:25 PM Patient requested to speak with me. I met with the patient. He was calm. He was cooperative. He requested another drink. He also had wanted to speak with a soccer coach. I spoke with health business unit leader Karime and asked that she page a soccer coach. I spoke with Rebecca Mata who is coming to assess the patient. Will sign out to [facility] evening provider. Quality:SDOH Health Related Social Needs: Health related social needs details no PCP; no consistent transportation Sign Out Sign Out Data: Sign Out Comment: SI, discharged from [facility] yesterday, cocaine earlier today. Plan to overdose. Feels unsafe at home. Medically cleared. [facility] inpatient. Needs med rec and home meds ordered Last updated by Mary Byrne MD at 01/05/24 07:23 Sign Out Comment: Patient has been medically cleared. He has been assessed by mental health. They agree with potential inpatient admission. Patient remained stable Throughout the shift. No interventions needed. Pending placement. Last updated by Jason Hill DO at 01/05/24 14:26 Sign Out Comment: PENDING PSYCH PLACEMENT VOLUNTARY FOR SI SIGNIFICANT POLYSUBSTANCE ABUSE HISTORY Last updated by Dora Hair MD at 01/05/24 22:37 Discharge Plan Discharge Details Chief Complaint: PsychEval Primary Care Provider: None,None ED Provider: Enoc Lester Home Meds and New Rx's Prescriptions: No Action pantoprazole 40 mg tablet,delayed release (DR/EC) 40 mg PO DAILY venlafaxine [Effexor XR] 150 mg capsule,extended release 24hr 150 mg PO DAILY Patient Comments: stopped taking for a few days. Restarted today. lisinopril 10 mg tablet 10 mg PO DAILY quetiapine [Seroquel XR] 150 mg PO HS enoxaparin [Lovenox] 150 mg/mL syringe 150 mg subcut Q12H buprenorphine-naloxone 8-2 mg film See Rx Instructions sublingual BID Patient Comments: confirmed dose w/Shauna Quiles Rx Instructions: 1 film in AM, 1/2 film in PM
[2024-01-06] MEDS: Venlafaxine 75 MG CAPCR 150 MG PO (11:28)
[2024-01-06] MEDS: Lisinopril 10 MG TAB PO (11:28)
[2024-01-06] MEDS: Pantoprazole 40 MG TABCR PO (11:28)
[2024-01-06 15:00] VITALS: BP 125/78; PULSE 65; RESP 16
--- NOTE | 2024-01-06 18:48 | ED.PROG_ITS ---
Date of service: 01/06/24 Time of Service: 18:48 Medical Decision Making Care assumed from off going provider. Patient is a 33-year-old gentleman with passive suicidal thoughts. Plan to overdose. Has a strong history of polysubstance abuse Has been evaluated by [facility] and is pending inpatient voluntary placement. Buprinorphen dose has been verified and ordered for daily use. Medical Records Medical records reviewed: Yes I reviewed the patient's medical records. Quality:[facility] Health Related Social Needs: Health related social needs details no PCP; no consist ent transportation Sign Out Sign Out Data: Sign Out Comment: SI, [facility] yesterday, cocaine earlier today. Plan to overdose. Feels unsafe at home. Medically cleared. [facility] recc inpatient. Needs med rec and home meds ordered Last updated by Mary Byrne MD at 01/05/24 07:23 Sign Out Comment: Patient has been medically cleared. He has been assessed by mental health. They agree with potential inpatient admission. Patient remained stable Throughout the shift. No interventions needed. Pending placement. Last updated by Jason Hill DO at 01/05/24 14:26 Sign Out Comment: PENDING PSYCH PLACEMENT VOLUNTARY FOR SI SIGNIFICANT POLYSUBSTANCE ABUSE HISTORY Last updated by Dora Hair MD at 01/05/24 22:37 Sign Out Comment: Voluntary for suicidal ideation with history of significant polysubstance abuse. Pending psychiatric placement. No active behavioral issues last shift. Patient is due to meet with a disaster recovery analyst this afternoon. Last updated by Enoc Lester MD at 01/06/24 16:27 Discharge Plan Discharge Details Chief Complaint: PsychEval Primary Care Provider: None,None ED Provider: Dora Hair Home Meds and New Rx's Prescriptions: No Action pantoprazole 40 mg tablet,delayed release (DR/EC) 40 mg PO DAILY venlafaxine [Effexor XR] 150 mg capsule,extended release 24hr 150 mg PO DAILY Patient Comments: stopped taking for a few days. Restarted today. lisinopril 10 mg tablet 10 mg PO DAILY quetiapine [Seroquel XR] 150 mg PO HS enoxaparin [Lovenox] 150 mg/mL syringe 150 mg subcut Q12H buprenorphine-naloxone 8-2 mg film See Rx Instructions sublingual BID Patient Comments: confirmed dose w/Shauna Quiles Rx Instructions: 1 film in AM, 1/2 film in PM
--- NOTE | 2024-01-06 19:06 | CMSP_ITS ---
Date of service: 01/06/24 Time of Service: 19:07 Care Management Safety Plan Status Status: Voluntary Reason for Wait Reason for Wait: Inpatient Admission Safety Plan Safety Plan: VOLUNTARY FOR INPATIENT PSYCHIATRIC STABILIZATION.? Patient is appropriate in all interactions since arriving at [facility]; Pt has demonstrated appropriate coping and communication skills, has articulated his or her needs and concerns and is fully engaged during staff interactions. Safety plan has been established with patient, and care team, to adhere to patient goals, identify restrictions based on behavioral status, address nutrition, and determine allowed personal belongings, tools for hygiene and personal care. Determine level of activity including ambulation, level of supervision, visitors, and determine privileges based on behaviors and level of engagement by pt. VOLUNTARY SAFETY PLAN: 1. Will remain on suicide precautions, in paper clothes 2. Will remain in Zone B under direct supervision of one-on-one staff at all times provided by [employer]; TALIA, GAUGER CHIEF DELIVERY fish hatchery supervisor. 3. May have paper cups, plates, finger foods as well as a cardboard spoon with which to eat meals. 4. Follow [facility] Management of the Admitted Behavioral Health Patient policy. 5. Shower available in Zone B without restriction. 6. Personal belongings-soft items permitted at RN discretion. 7. Visitors- at RN discretion. 8. Activities: soft cart items approved per RN discretion. 9.? Bathroom available in Zone B without restriction. 10. Phone: limited to [facility] cordless phone at RN discretion. Due to VOLUNTARY status, if patient wishes to leave [facility], staff will contact [facility] Crisis Screener ([phone]) and Hand Bindery Assembly Worker ([phone]) as soon as possible. In the event of elopement, notify [facility] Police ([phone]). Patient is currently voluntarily at [facility] and seeking inpatient admission when a bed becomes available. [facility] Frontline Track Walker will continue seeking dylan cement. Please contact the Hand Bindery Assembly Worker ([phone]) and [facility] Track Walker ([phone]) for any needed changes in the Safety Plan. Safety plan has been provided to interdepartmental care team.
--- NOTE | 2024-01-06 19:06 | PDOC.CMSAFE ---
Date of service: 01/06/24 Time of Service: 19:07 Care Management Safety Plan Status Status: Voluntary Reason for Wait Reason for Wait: Inpatient Admission Safety Plan Safety Plan: VOLUNTARY FOR INPATIENT PSYCHIATRIC STABILIZATION.? Patient is appropriate in all interactions since arriving at [facility]; Pt has demonstrated appropriate coping and communication skills, has articulated his or her needs and concerns and is fully engaged during staff interactions. Safety plan has been established with patient, and care team, to adhere to patient goals, identify restrictions based on behavioral status, address nutrition, and determine allowed personal belongings, tools for hygiene and personal care. Determine level of activity including ambulation, level of supervision, visitors, and determine privileges based on behaviors and level of engagement by pt. VOLUNTARY SAFETY PLAN: 1. Will remain on suicide precautions, in paper clothes 2. Will remain in Zone B under direct supervision of one-on-one staff at all times provided by [employer]; TALIA, MAINFRAME APPLICATIONS DEVELOPER commercial estimator. 3. May have paper cups, plates, finger foods as well as a cardboard spoon with which to eat meals. 4. Follow [facility] Management of the Admitted Behavioral Health Patient policy. 5. Shower available in Zone B without restriction. 6. Personal belongings-soft items permitted at RN discretion. 7. Visitors- at RN discretion. 8. Activities: soft cart items approved per RN discretion. 9.? Bathroom available in Zone B without restriction. 10. Phone: limited to [facility] cordless phone at RN discretion. Due to VOLUNTARY status, if patient wishes to leave [facility], staff will contact [facility] Crisis Screener ([phone]) and Director Of Investigations ([phone]) as soon as possible. In the event of elopement, notify [facility] Police ([phone]). Patient is currently voluntarily at [facility] and seeking inpatient admission when a bed becomes available. [facility] Frontline Financial Center Manager will continue seeking placement. Please contact the Director Of Investigations ([phone]) and [facility] Financial Center Manager ([phone]) for any needed changes in the Safety Plan. Safety plan has been provided to interdepartmental care team.
--- NOTE | 2024-01-06 19:07 | PDOC.CMPRO ---
Date of service: 01/06/24 Time of Service: 19:07 Care Management Progress Note Progress Note Text Progress Note Text: Mike remains voluntary, waiting for inpatient psychiatric treatment. He was screened by [facility], and he rated his SI at a 6 today, with a plan to O/D on substances. Per HS, he meets criteria for inpatient psychiatric treatment. Mike requested to meet with the assistant football coach this afternoon; they were paged. Referrals have been sent to all facilities. Safety plan in place. CM will continue to follow.
[2024-01-06] MEDS: Buprenorphine/Naloxone 8 mg/2 mg FILM SL (20:13)
[2024-01-07] MEDS: Pantoprazole 40 MG TABCR PO (08:47)
[2024-01-07] MEDS: Venlafaxine 75 MG CAPCR 150 MG PO (08:48)
[2024-01-07] MEDS: Lisinopril 10 MG TAB PO (08:49)
[2024-01-07 14:14] LABS: *AMPHETAMINES SCREEN URINE Negative (Negative); *BARBITURATES SCREEN URINE Negative (Negative); *BENZODIAZEPINES SCREEN URINE Negative (Negative); Cannabinoids THC Negative (Negative); Cocaine Screen,Urine Positive (Negative); METHADONE URINE SCREEN Negative (Negative); OPIATES URINE SCREEN Negative (Negative); Tricyclic Antidepressants Negative (Negative)
--- NOTE | 2024-01-07 17:53 | ED.PROG_ITS ---
Date of service: 01/07/24 Time of Service: 17:53 Medical Decision Making Patient was signed out by Dr. Cruz, please see his documentation regarding earlier ED course. Patient medically clear at time of signout. Patient was reassessed and remained stable awaiting psychiatric treatment facility placement for his depression and suicidality. Quality:[facility] Health Related Social Needs: Health related social needs details no PCP; no consist ent transportation Sign Out Sign Out Data: Sign Out Comment: SI, discharged from [facility] yesterday, cocaine earlier today. Plan to overdose. Feels unsafe at home. Medically cleared. [facility] recc inpatient. Needs med rec and home meds ordered Last updated by Mary Byrne MD at 01/05/24 07:23 Sign Out Comment: Patient has been medically cleared. He has been assessed by mental health. They agree with potential inpatient admission. Patient remained stable Throughout the shift. No interventions needed. Pending placement. Last updated by Jason Hill DO at 01/05/24 14:26 Sign Out Comment: PENDING PSYCH PLACEMENT VOLUNTARY FOR SI SIGNIFICANT POLYSUBSTANCE ABUSE HISTORY Last updated by Dora Hair MD at 01/05/24 22:37 Sign Out Comment: Voluntary for suicidal ideation with history of significant polysubstance abuse. Pending psychiatric placement. No active behavioral issues last shift. Patient is due to meet with a motor coach chauffeur this afternoon. Last updated by Enoc Lester MD at 01/06/24 16:27 Sign Out Comment: PENDING PSYCH PLACEMENT VOLUNTARY FOR SI SIGNIFICANT POLYSUBSTANCE ABUSE HISTORY MET WITH VISUAL BASIC DEVELOPER, REFERRAL SENT TO [facility], REFERRALS FOR INPATIENT PSYCH STILL PENDING Last updated by Dora Hair MD at 01/06/24 22:28 Sign Out Comment: Remains here on voluntary psych placement for SI and substance abuse. No issues/changes overnight. Last updated by Jean Cruz MD at 01/07/24 06:59 Discharge Plan Discharge Details Chief Complaint: PsychEval Primary Care Provider: None,None ED Provider: Roscoe Dexter Home Meds and New Rx's Prescriptions: No Action pantoprazole 40 mg tablet,delayed release (DR/EC) 40 mg PO DAILY venlafaxine [Effexor XR] 150 mg capsule,extended release 24hr 150 mg PO DAILY Patient Comments: stopped taking for a few days. Restarted today. lisinopril 10 mg tablet 10 mg PO DAILY quetiapine [Seroquel XR] 150 mg PO HS enoxaparin [Lovenox] 150 mg/mL syringe 150 mg subcut Q12H buprenorphine-naloxone 8-2 mg film See Rx Instructions sublingual BID Patient Comments: confirmed dose w/Shauna Quiles Rx Instructions: 1 film in AM, 1/2 film in PM
--- NOTE | 2024-01-07 19:01 | ED.PROG_ITS ---
Date of service: 01/07/24 Time of Service: 19:02 Medical Decision Making Patient seeking voluntary placement for SI, no issues reported on prior shift and currently calm and cooperative without acute complaints, will continue to monitor until safe disposition found Quality:[facility] Health Related Social Needs: Health related social needs details no PCP; no consist ent transportation Sign Out Sign Out Data: Sign Out Comment: SI, discharged from [facility] yesterday, cocaine earlier today. Plan to overdose. Feels unsafe at home. Medically cleared. [facility] inpatient. Needs med rec and home meds ordered Last updated by Mary Byrne MD at 01/05/24 07:23 Sign Out Comment: Patient has been medically cleared. He has been assessed by mental health. They agree with potential inpatient admission. Patient remained stable Throughout the shift. No interventions needed. Pending placement. Last updated by Jason Hill DO at 01/05/24 14:26 Sign Out Comment: PENDING PSYCH PLACEMENT VOLUNTARY FOR SI SIGNIFICANT POLYSUBSTANCE ABUSE HISTORY Last updated by Dora Hair MD at 01/05/24 22:37 Sign Out Comment: Voluntary for suicidal ideation with history of significant polysubstance abuse. Pending psychiatric placement. No active behavioral issues last shift. Patient is due to meet with a lean coach this afternoon. Last updated by Enoc Lester MD at 01/06/24 16:27 Sign Out Comment: PENDING PSYCH PLACEMENT VOLUNTARY FOR SI SIGNIFICANT POLYSUBSTANCE ABUSE HISTORY MET WITH INSTRUCTIONAL SPECIALIST, REFERRAL SENT TO [facility], REFERRALS FOR INPATIENT PSYCH STILL PENDING Last updated by Dora Hair MD at 01/06/24 22:28 Sign Out Comment: Remains here on voluntary psych placement for SI and substance abuse. No issues/changes overnight. Last updated by Jean Cruz MD at 01/07/24 06:59 Sign Out Comment: Patient remains here voluntarily awaiting inpatient psych iatric treatment. Last updated by Roscoe Dexter MD at 01/07/24 17:57 Sign Out Comment: voluntary for si, no issues during shift Last updated by Gilberto Reyes MD at 01/07/24 19:00 Discharge Plan Discharge Details Chief Complaint: PsychEval Primary Care Provider: None,None ED Provider: Gilberto Reyes Home Meds and New Rx's Prescriptions: No Action pantoprazole 40 mg tablet,delayed release (DR/EC) 40 mg PO DAILY venlafaxine [Effexor XR] 150 mg capsule,extended release 24hr 150 mg PO DAILY Patient Comments: stopped taking for a few days. Restarted today. lisinopril 10 mg tablet 10 mg PO DAILY quetiapine [Seroquel XR] 150 mg PO HS enoxaparin [Lovenox] 150 mg/mL syringe 150 mg subcut Q12H buprenorphine-naloxone 8-2 mg film See Rx Instructions sublingual BID Patient Comments: confirmed dose w/Shauna Quiles Rx Instructions: 1 film in AM, 1/2 film in PM
--- NOTE | 2024-01-07 20:08 | CMSP_ITS ---
Date of service: 01/07/24 Time of Service: 20:08 Care Management Safety Plan Status Status: Voluntary Reason for Wait Reason for Wait: Inpatient Admission Safety Plan Safety Plan: VOLUNTARY FOR INPATIENT PSYCHIATRIC STABILIZATION.? Patient is appropriate in all interactions since arriving at [facility]; Pt has demonstrated appropriate coping and communication skills, has articulated his or her needs and concerns and is fully engaged during staff interactions. Safety plan has been established with patient, and care team, to adhere to patient goals, identify restrictions based on behavioral status, address nutrition, and determine allowed personal belongings, tools for hygiene and personal care. Determine level of activity including ambulation, level of supervision, visitors, and determine privileges based on behaviors and level of engagement by pt. VOLUNTARY SAFETY PLAN: 1. Will remain on suicide precautions, in paper clothes 2. Will remain in Zone B under direct supervision of one-on-one staff at all times provided by [employer]; TALIA, LABORATORY CHEMICAL ASSISTANT caltrans equipment operator. 3. May have paper cups, plates, finger foods as well as a cardboard spoon with which to eat meals. 4. Follow [facility] Management of the Admitted Behavioral Health Patient policy. 5. Shower available in Zone B without restriction. 6. Personal belongings-soft items permitted at RN discretion. 7. Visitors- at RN discretion. 8. Activities: soft cart items approved per RN discretion. 9.? Bathroom available in Zone B without restriction. 10. Phone: limited to [facility] cordless phone at RN discretion. Due to VOLUNTARY status, if patient wishes to leave [facility], staff will contact [facility] Crisis Screener ([phone]) and Precision Crop Manager ([phone]) as soon as possible. In the event of elopement, notify [facility] Police ([phone]). Patient is currently voluntarily at [facility] and seeking inpatient admission when a bed becomes available. [facility] Frontline Grey Roll Man will continue seeking dylan cement. Please contact the Precision Crop Manager ([phone]) and [facility] Grey Roll Man ([phone]) for any needed changes in the Safety Plan. Safety plan has been provided to interdepartmental care team.
--- NOTE | 2024-01-07 20:08 | PDOC.CMSAFE ---
Date of service: 01/07/24 Time of Service: 20:08 Care Management Safety Plan Status Status: Voluntary Reason for Wait Reason for Wait: Inpatient Admission Safety Plan Safety Plan: VOLUNTARY FOR INPATIENT PSYCHIATRIC STABILIZATION.? Patient is appropriate in all interactions since arriving at [facility]; Pt has demonstrated appropriate coping and communication skills, has articulated his or her needs and concerns and is fully engaged during staff interactions. Safety plan has been established with patient, and care team, to adhere to patient goals, identify restrictions based on behavioral status, address nutrition, and determine allowed personal belongings, tools for hygiene and personal care. Determine level of activity including ambulation, level of supervision, visitors, and determine privileges based on behaviors and level of engagement by pt. VOLUNTARY SAFETY PLAN: 1. Will remain on suicide precautions, in paper clothes 2. Will remain in Zone B under direct supervision of one-on-one staff at all times provided by [employer]; TALIA, BULB ASSEMBLER predatory animal trapper. 3. May have paper cups, plates, finger foods as well as a cardboard spoon with which to eat meals. 4. Follow [facility] Management of the Admitted Behavioral Health Patient policy. 5. Shower available in Zone B without restriction. 6. Personal belongings-soft items permitted at RN discretion. 7. Visitors- at RN discretion. 8. Activities: soft cart items approved per RN discretion. 9.? Bathroom available in Zone B without restriction. 10. Phone: limited to [facility] cordless phone at RN discretion. Due to VOLUNTARY status, if patient wishes to leave [facility], staff will contact [facility] Crisis Screener ([phone]) and Antique Furniture Restorer ([phone]) as soon as possible. In the event of elopement, notify [facility] Police ([phone]). Patient is currently voluntarily at [facility] and seeking inpatient admission when a bed becomes available. [facility] Frontline Poly Packer And Heat Sealer will continue seeking placement. Please contact the Antique Furniture Restorer ([phone]) and [facility] Poly Packer And Heat Sealer ([phone]) for any needed changes in the Safety Plan. Safety plan has been provided to interdepartmental care team.
--- NOTE | 2024-01-07 20:08 | PDOC.CMPRO ---
Date of service: 01/07/24 Time of Service: 20:08 Care Management Progress Note Progress Note Text Progress Note Text: Mike remains in zone B, awaiting inpatient psychiatric treatment. He has been calm and appropriate, and has been sleeping a lot, per RN. He met with [facility] today who reported that he continues to meet criteria for inpatient admission. Referrals were sent; no bed offers today. Safety plan in place. CM will continue to follow.
[2024-01-07] MEDS: Nicotine 21 MG/24 HR PATCH TD (20:13)
[2024-01-07] MEDS: Buprenorphine/Naloxone 8 mg/2 mg FILM 1 EACH SL (20:41)
[2024-01-08] MEDS: LORazepam 0.5 MG TAB PO (02:33)
--- NOTE | 2024-01-08 07:26 | W.EDPROG ---
Date of service: 01/08/24 Time of Service: 07:27 Medical Decision Making Patient remains in the ED waiting for inpatient bed for management of substance abuse, depression, SI. No real issues overnight. Was anxious and having trouble sleeping so did receive half milligram of oral lorazepam. Otherwise no change in status. Quality:[facility] Health Related Social Needs: Health related social needs details no PCP; no consistent transportation Sign Out Sign Out Data: Sign Out Comment: SI, discharged from [facility] yesterday, cocaine earlier today. Plan to overdose. Feels unsafe at home. Medically cleared. [facility] inpatient. Needs med rec and home meds ordered Last updated by Mary Byrne MD at 01/05/24 07:23 Sign Out Comment: Patient has been medically cleared. He has been assessed by mental health. They agree with potential inpatient admission. Patient remained stable Throughout the shift. No interventions needed. Pending placement. Last updated by Jason Hill DO at 01/05/24 14:26 Sign Out Comment: PENDING PSYCH PLACEMENT VOLUNTARY FOR SI SIGNIFICANT POLYSUBSTANCE ABUSE HISTORY Last updated by Dora Hair MD at 01/05/24 22:37 Sign Out Comment: Voluntary for suicidal ideation with history of significant polysubstance abuse. Pending psychiatric placement. No active behavioral issues last shift. Patient is due to meet with a flag football coach this afternoon. Last updated by Enoc Lester MD at 01/06/24 16:27 Sign Out Comment: PENDING PSYCH PLACEMENT VOLUNTARY FOR SI SIGNIFICANT POLYSUBSTANCE ABUSE HISTORY MET WITH FOUR ROLL CALENDER OPERATOR, REFERRAL SENT TO [facility] ([place], [place]), REFERRALS FOR INPATIENT PSYCH STILL PENDING Last updated by Dora Hair MD at 01/06/24 22:28 Sign Out Comment: Remains here on voluntary psych placement for SI and substance abuse. No issues/changes overnight. Last updated by Jean Cruz MD at 01/07/24 06:59 Sign Out Comment: Patient remains here voluntarily awaiting inpatient psychiatric treatment. Last updated by Roscoe Dexter MD at 01/07/24 17:57 Sign Out Comment: voluntary for si, no issues during shift Last updated by Gilberto Reyes MD at 01/07/24 19:00 Discharge Plan Discharge Details Chief Complaint: PsychEval Primary Care Provider: None,None ED Provider: Jean Cruz [place] Meds and New Rx's Prescriptions: No Action pantoprazole 40 mg tablet,delayed release (DR/EC) 40 mg PO DAILY venlafaxine [Effexor XR] 150 mg capsule,extended release 24hr 150 mg PO DAILY Patient Comments: stopped taking for a few days. Restarted today. lisinopril 10 mg tablet 10 mg PO DAILY quetiapine [Seroquel XR] 150 mg PO HS enoxaparin [Lovenox] 150 mg/mL syringe 150 mg subcut Q12H buprenorphine-naloxone 8-2 mg film See Rx Instructions sublingual BID Patient Comments: confirmed dose w/Shauna Quiles Rx Instructions: 1 film in AM, 1/2 film in PM
--- NOTE | 2024-01-08 10:09 | CMSP_ITS ---
Date of service: 01/08/24 Time of Service: 10:09 Care Management Safety Plan Status Status: Voluntary Reason for Wait Reason for Wait: Inpatient Admission Safety Plan Safety Plan: VOLUNTARY FOR INPATIENT PSYCHIATRIC STABILIZATION.? Patient is appropriate in all interactions since arriving at [facility]; Pt has demonstrated appropriate coping and communication skills, has articulated his or her needs and concerns and is fully engaged during staff interactions. Safety plan has been established with patient, and care team, to adhere to patient goals, identify restrictions based on behavioral status, address nutrition, and determine allowed personal belongings, tools for hygiene and personal care. Determine level of activity including ambulation, level of supervision, visitors, and determine privileges based on behaviors and level of engagement by pt. [facility] was checking to see if [facility] is able to provide cardiac medications. CM was notified by YUE Steele this afternoon that Mike is accepted to [facility] pending bed availability. CM will follow. VOLUNTARY SAFETY PLAN: 1. Will remain on suicide precautions, in paper clothes 2. Will remain in Zone B under direct supervision of one-on-one staff at all times provided by [employer]; TALIA, JOHN behavioral therapist. 3. May have paper cups, plates, finger foods as well as a cardboard spoon with which to eat meals. 4. Follow [facility] Management of the Admitted Behavioral Health Patient policy. 5. Shower available in Zone B without restriction. 6. Personal belongings-soft items permitted at RN discretion. 7. Visitors- at RN discretion. 8. Activities: soft cart items approved per RN discretion. 9.? Bathroom available in Zone B without restriction. 10. Phone: limited to [facility] cordless phone at RN discretion. Due to VOLUNTARY status, if patient wishes to leave [facility], staff will contact [facility] Crisis Screener ([phone]) and Event Marketing Representative ([phone]) as soon as possible. In the event of elopement, notify [facility] Police ([phone]). Patient is currently voluntarily at [facility] and seeking inpatient admission when a bed becomes available. [facility] Frontline Plant Operator/Shift Supervisor will continue seeking placement. Please contact the Event Marketing Representative ([phone]) and [facility] Plant Operator/Shift Supervisor ([phone]) for any needed changes in the Safety Plan. Safety plan has been provided to interdepartmental care team.
--- NOTE | 2024-01-08 10:09 | PDOC.CMSAFE ---
Date of service: 01/08/24 Time of Service: 10:09 Care Management Safety Plan Status Status: Voluntary Reason for Wait Reason for Wait: Inpatient Admission Safety Plan Safety Plan: VOLUNTARY FOR INPATIENT PSYCHIATRIC STABILIZATION.? Patient is appropriate in all interactions since arriving at [facility]; Pt has demonstrated appropriate coping and communication skills, has articulated his or her needs and concerns and is fully engaged during staff interactions. Safety plan has been established with patient, and care team, to adhere to patient goals, identify restrictions based on behavioral status, address nutrition, and determine allowed personal belongings, tools for hygiene and personal care. Determine level of activity including ambulation, level of supervision, visitors, and determine privileges based on behaviors and level of engagement by pt. [facility] was checking to see if [facility] is able to provide cardiac medications. CM was notified by YUE Steele this afternoon that Mike is accepted to [facility] pending bed availability. CM will follow. VOLUNTARY SAFETY PLAN: 1. Will remain on suicide precautions, in paper clothes 2. Will remain in Zone B under direct supervision of one-on-one staff at all times provided by [employer]; TALIA, JOHN newspaper carriers supervisor. 3. May have paper cups, plates, finger foods as well as a cardboard spoon with which to eat meals. 4. Follow [facility] Management of the Admitted Behavioral Health Patient policy. 5. Shower available in Zone B without restriction. 6. Personal belongings-soft items permitted at RN discretion. 7. Visitors- at RN discretion. 8. Activities: soft cart items approved per RN discretion. 9.? Bathroom available in Zone B without restriction. 10. Phone: limited to [facility] cordless phone at RN discretion. Due to VOLUNTARY status, if patient wishes to leave [facility], staff will contact [facility] Crisis Screener ([phone]) and Allocation Analyst ([phone]) as soon as possible. In the event of elopement, notify [facility] Police ([phone]). Patient is currently voluntarily at [facility] and seeking inpatient admission when a bed becomes available. [facility] Frontline Profiler will continue seeking placement. Please contact the Allocation Analyst ([phone]) and [facility] Profiler ([phone]) for any needed changes in the Safety Plan. Safety plan has been provided to interdepartmental care team.
[2024-01-08 11:56] VITALS: BP 128/89; PULSE 75; RESP 18; TEMP 36.5; O2SAT 96
[2024-01-08] MEDS: Lisinopril 10 MG TAB PO (11:59)
[2024-01-08] MEDS: Venlafaxine 75 MG CAPCR 150 MG PO (12:00)
[2024-01-08] MEDS: Nicotine 21 MG/24 HR PATCH TD (12:02)
[2024-01-08] MEDS: Buprenorphine/Naloxone 8 mg/2 mg FILM 1 EACH SL (12:04)
[2024-01-08] MEDS: Pantoprazole 40 MG TABCR PO (12:29)
--- NOTE | 2024-01-08 12:34 | NUR.NOTE ---
PTs AM meds were delayed due to PT sleeping Nursing Note:
--- NOTE | 2024-01-08 15:50 | NUR.NOTE ---
PT brushed his teeth Nursing Note:
--- NOTE | 2024-01-08 17:22 | W.EDPROG ---
Date of service: 01/08/24 Time of Service: 17:22 Medical Decision Making Patient resting notably no acute distress. Patient has been accepted at [facility]. Quality:[facility] Health Related Social Needs: Health related social needs details no PCP; no consistent transportation Sign Out Sign Out Data: Sign Out Comment: SI, discharged from [facility] yesterday, cocaine earlier today. Plan to overdose. Feels unsafe at home. Medically cleared. [facility] inpatient. Needs med rec and home meds ordered Last updated by Mary Byrne MD at 01/05/24 07:23 Sign Out Comment: Patient has been medically cleared. He has been assessed by mental health. They agree with potential inpatient admission. Patient remained stable Throughout the shift. No interventions needed. Pending placement. Last updated by Jason Hill DO at 01/05/24 14:26 Sign Out Comment: PENDING PSYCH PLACEMENT VOLUNTARY FOR SI SIGNIFICANT POLYSUBSTANCE ABUSE HISTORY Last updated by Dora Hair MD at 01/05/24 22:37 Sign Out Comment: Voluntary for suicidal ideation with history of significant polysubstance abuse. Pending psychiatric placement. No active behavioral issues last shift. Patient is due to meet with a assistant boys track coach this afternoon. Last updated by Enoc Lester MD at 01/06/24 16:27 Sign Out Comment: PENDING PSYCH PLACEMENT VOLUNTARY FOR SI SIGNIFICANT POLYSUBSTANCE ABUSE HISTORY MET WITH SCISSORS SHARPENER, REFERRAL SENT TO [facility], REFERRALS FOR INPATIENT PSYCH STILL PENDING Last updated by Dora Hair MD at 01/06/24 22:28 Sign Out Comment: Remains here on voluntary psych placement for SI and substance abuse. No issues/changes overnight. Last updated by Jean Cruz MD at 01/07/24 06:59 Sign Out Comment: Patient remains here voluntarily awaiting inpatient psychiatric treatment. Last updated by Roscoe Dexter MD at 01/07/24 17:57 Sign Out Comment: voluntary for si, no issues during shift Last updated by Gilberto Reyes MD at 01/07/24 19:00 Sign Out Comment: Remains voluntary pending psych admission for substance abuse, depression, SI. Last updated by Jean Cruz MD at 01/08/24 07:33 Discharge Plan Disposition Patient Disposition: Transfer-Acute Inpatient Care Specific Acute Inpt Facility: Other Condition: Stable Discharge Details Clinical Impression: Suicidal ideations Primary Care Provider: None,None ED Provider: Aleksey Nicole Home Meds and New Rx's Prescriptions: No Action pantoprazole 40 mg tablet,delayed release (DR/EC) 40 mg PO DAILY venlafaxine [Effexor XR] 150 mg capsule,extended release 24hr 150 mg PO DAILY Patient Comments: stopped taking for a few days. Restarted today. lisinopril 10 mg tablet 10 mg PO DAILY quetiapine [Seroquel XR] 150 mg PO HS enoxaparin [Lovenox] 150 mg/mL syringe 150 mg subcut Q12H buprenorphine-naloxone 8-2 mg film See Rx Instructions sublingual BID Patient Comments: confirmed dose w/Shauna Quiles Rx Instructions: 1 film in AM, 1/2 film in PM
--- NOTE | 2024-01-08 18:09 | NUR.NOTE ---
report given to Lawrence at [facility] Note:
[2024-01-08] MEDS: Buprenorphine/Naloxone 4 mg/1 mg FILM 1 EACH SL (19:38)
--- NOTE | 2024-01-08 22:50 | ED.PROG_ITS ---
Date of service: 01/08/24 Time of Service: 22:50 Medical Decision Making Please see previous notes for H&P and initial eval. In brief, 33yo M presenting with SI. Medically cleared, accepted to [facility], plan for transfer tomorrow morning. Overnight pt anxious; ordered ativan prn. No acute behavioral events. Will be signed out to oncoming physician, plan remains as above. Quality:[facility] Health Related Social Needs: Health related social needs details no PCP; no consist ent transportation Sign Out Sign Out Data: Sign Out Comment: SI, discharged from [facility] yesterday, cocaine earlier today. Plan to overdose. Feels unsafe at home. Medically cleared. [facility] recc inpatient. Needs med rec and home meds ordered Last updated by Mray Byrne MD at 01/05/24 07:23 Sign Out Comment: Patient has been medically cleared. He has been assessed by mental health. They agree with potential inpatient admission. Patient remained stable Throughout the shift. No interventions needed. Pending placement. Last updated by Jason Hill DO at 01/05/24 14:26 Sign Out Comment: PENDING PSYCH PLACEMENT VOLUNTARY FOR SI SIGNIFICANT POLYSUBSTANCE ABUSE HISTORY Last updated by Dora Hair MD at 01/05/24 22:37 Sign Out Comment: Voluntary for suicidal ideation with history of significant polysubstance abuse. Pending psychiatric placement. No active behavioral issues last shift. Patient is due to meet with a personal health coach this afternoon. Last updated by Enco Lester MD at 01/06/24 16:27 Sign Out Comment: PENDING PSYCH PLACEMENT VOLUNTARY FOR SI SIGNIFICANT POLYSUBSTANCE ABUSE HISTORY MET WITH CIRCULATOR, REFERRAL SENT TO [facility], REFERRALS FOR INPATIENT PSYCH STILL PENDING Last updated by Dora Hair MD at 01/06/24 22:28 Sign Out Comment: Remains here on voluntary psych placement for SI and substance abuse. No issues/changes overnight. Last updated by Jean Cruz MD at 01/07/24 06:59 Sign Out Comment: Patient remains here voluntarily awaiting inpatient psychiatric treatment. Last updated by Roscoe Dexter MD at 01/07/24 17:57 Sign Out Comment: voluntary for si, no issues during shift Last updated by Gilberto Reyes MD at 01/07/24 19:00 Sign Out Comment: Remains voluntary pending psych admission for substance abuse, depression, SI. Last updated by Jean Cruz MD at 01/08/24 07:33 Discharge Plan Disposition Patient Disposition: Transfer-Acute Inpatient Care Specific Acute Inpt Facility: Other Condition: Stable Discharge Details Clinical Impression: Suicidal ideations Primary Care Provider: None,None ED Provider: Mary Byrne Home Meds and New Rx's Prescriptions: No Action pantoprazole 40 mg tablet,delayed release (DR/EC) 40 mg PO DAILY venlafaxine [Effexor XR] 150 mg capsule,extended release 24hr 150 mg PO DAILY Patient Comments: stopped taking for a few days. Restarted today. lisinopril 10 mg tablet 10 mg PO DAILY quetiapine [Seroquel XR] 150 mg PO HS enoxaparin [Lovenox] 150 mg/mL syringe 150 mg subcut Q12H buprenorphine-naloxone 8-2 mg film See Rx Instructions sublingual BID Patient Comments: confirmed dose ancelmo/Shauna Quiles Rx Instructions: 1 film in AM, 1/2 film in PM
[2024-01-09] MEDS: LORazepam 1 MG TAB 2 MG PO ×2 (02:18→08:33)
[2024-01-09] MEDS: Buprenorphine/Naloxone 4 mg/1 mg FILM 1 EACH SL (08:25)
[2024-01-09] MEDS: Lisinopril 10 MG TAB PO (08:25)
[2024-01-09] MEDS: Nicotine 21 MG/24 HR PATCH TD (08:25)
[2024-01-09] MEDS: Buprenorphine/Naloxone 8 mg/2 mg FILM 1 EACH SL (08:25)
[2024-01-09 08:26] VITALS: BP 121/73; PULSE 81; RESP 20; TEMP 36.3; O2SAT 93
[2024-01-09] MEDS: Venlafaxine 75 MG CAPCR 150 MG PO (08:27)
[2024-01-09] MEDS: Pantoprazole 40 MG TABCR PO (08:27)
--- NOTE | 2024-01-09 09:51 | NUR.NOTE ---
summer RN called for update. recent set of vitals, ht and wt and allergies. Nursing Note:
== END 2024-01-09 08:59 | disposition short-term general hospital (02) ==
PROVIDERS: Student in an Organized Health Care Education/Training Program; Emergency Provider Emergency Medicine
DX: R45.851 Suicidal ideations (principal); F32.A Depression, unspecified; F19.10 Other psychoactive substance abuse, uncomplicated; I10 Essential (primary) hypertension; E66.01 Morbid (severe) obesity due to excess calories; F17.210 Nicotine dependence, cigarettes, uncomplicated; Z86.718 Personal history of other venous thrombosis and embolism
CPT/HCPCS: 00123; 80307; 93005; 96127; 99285; 93010; J1650; J3490